=== PATIENT | female | born 1960 | race Caucasian/White ===

== ENCOUNTER → 2016-06-10 | Outpatient (CLI) | payer OTHER ==
--- NOTE | 2016-06-10 13:53 | REP ---
MR CERVICAL SPINE WITHOUT CONTRAST: HISTORY: Neck pain. There is no disc bulge or herniation. The spinal canal and neural foramina are patent. The spinal cord is normal in signal intensity. There is no intradural extramedullary lesion. Normal signal intensity is present in the cervical vertebral bodies. IMPRESSION: There is no disc bulge or herniation. Signed by Dwain Hinojosa MD 06/10/2016 02:16 P
== END ==
LOC: M RAD 11:01
PROVIDERS: ATTEND Physician Assistant Surgical
DX: M47.892 Other spondylosis, cervical region (principal)

== ENCOUNTER → 2016-06-27 | Outpatient (REF) | payer OTHER ==
[2016-06-27 16:57] LABS: BASO % 0.4 % (0.0-1.0); EOS # 0.2 K/mm3 (0.0-0.50); EOS % 5.1 % (0.0-3.0); LARGE UNSTAINED CELL # 0.1 K/mm3 (0.0-0.4); LARGE UNSTAINED CELL % 2.1 % (0.0-4.0); LYMPH # 0.8 K/mm3 (1.5-4.5); LYMPH % 20.8 % (24.0-44.0); MEAN CORPUSCULAR HEMOGLOBIN 28.8 pg (27.0-33.0); MEAN CORPUSCULAR HGB CONC 34.8 g/dl (32.0-36.5); MEAN CORPUSCULAR VOLUME 82.7 fl (80.0-96.0); MONO # 0.3 K/mm3 (0.0-0.8); MONO % 7.6 % (0.0-5.0); NEUTROPHILS # 2.2 K/mm3 (1.8-7.7); NEUTROPHILS % 64.1 % (36.0-66.0); PLATELET COUNT, AUTOMATED 221 k/mm3 (150-450); RED CELL DISTRIBUTION WIDTH 13.5 % (11.5-14.5); WHITE BLOOD COUNT 3.4 K/mm3 (4.0-10.0)
[2016-06-27 20:20] LABS: ERYTHROCYTE SEDIMENTATION RATE 7 mm/hr (0-30)
[2016-06-29 14:16] LABS: Lyme Disease IgG/IgM Antibodie <0.91 ISR (0.00-0.90); Lyme Disease IgM Ab Quantitati <0.80 index (0.00-0.79)
== END ==
LOC: M LABDRAW1 15:41
PROVIDERS: ATTEND Orthopaedic Surgery
DX: M16.12 Unilateral primary osteoarthritis, left hip (principal)

== ENCOUNTER 2016-06-28 08:58 | Emergency (ER) | payer OTHER ==
--- NOTE | 2016-06-28 09:28 | EDDOCDS ---
Nurse's Notes [facility] Name: Edwige Magallanes Age: 55 yrs Sex: Female : 1960 Arrival Date: 06/28/2016 Time: 08:58 Bed Triage 1 Private MD: Johana Alves V Diagnosis: Cough;Viral infection, unspecified Presentation: 06/28 09:02 Presenting complaint: Patient states: cough for 5 days. Yesterday had vomiting and last kr3 night fevers. Adult Sepsis Screening: The patient does not have new or worsening altered mentation. Patient's respiratory rate is less than 22. Systolic blood pressure is greater than 100. Patient has a qSOFA score of 0- Negative Sepsis Screen. Suicide/Homicide risk assessment- the patient denies having any suicidal and/or homicidal ideations and does not present with any other emotional, behavioral or mental health complaints. 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 Transition of care: patient was not received from another setting of care. 09:02 Acuity: ANTONINA Level 4 kr3 09:02 Method Of Arrival: Walkin/Carried/Asstd kr3 Triage Assessment: 09:05 General: Appears in no apparent distress, comfortable, Behavior is cooperative, Reports kr3 feeling ill for weakness. Pain: Location: abdomen Pain currently is 5 out of 10 on a pain scale. Quality of pain is described as pulled muscles. HIV screening NA for this visit Offered previously. Respiratory: Respiratory effort is even, unlabored. Respiratory: Reports cough that is since 5 days. GI: Reports yesterday nausea, vomiting and diarrhea. Derm: Skin is normal. 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 lisinopril-hydrochlorothiazide 10-12.5 mg oral tab 0.5 tab once daily (Last dose: 06/28/2016) 2. Tylenol 325 mg Oral tab 2 tabs every 4 hours (Last dose: 06/28/2016 08:45) 3. ibuprofen 200 mg Oral tab 1 tab as needed (Last dose: 06/27/2016) - PMHx: Asthma; Blood Disorder; Hepatitis; Hypertension; neck pain; - PSHx: Appendectomy; - Social history: Smoking status: Patient states was never smoker of tobacco. No barriers to communication noted, The patient speaks fluent Persian, Speaks appropriately for age. - Family history: Not pertinent. - : The pt / caregiver states he / she is not on anticoagulants. Home medication list is obtained from the patient. - Exposure Risk Screening:: None identified. Screenin:27 Screening information is obtained from the patient. Fall risk: No risks identified. srm Assistance ADL's: requires no assistance with activities of daily living. Abuse/DV Screen: The patient / caregiver reports he/she is: not in a situation that causes fear, pain or injury. Nutritional screening: No deficits noted. Advance Directives: There is no active DNR order. home support is adequate. Assessment: 09:27 General: Appears in no apparent distress, Behavior is appropriate for age, cooperative. srm Neurological: No deficits noted. Cardiovascular: No deficits noted. Respiratory: No deficits noted. GI: No deficits noted. Derm: No deficits noted. Vital Signs: 09:05 BP 137 / 78; Pulse 104; Resp 18; Temp 99.9(O); Pulse Ox 94% on R/A; Weight 84.37 kg kr3 (M); Height 5 ft. 1 in. (154.94 cm) (R); 09:05 Body Mass Index 35.14 (84.37 kg, 154.94 cm) kr3 Vitals: 09:05 Log In Time: June 28, 2016 at 08:56. kr3 ED Course: 08:59 Patient visited by Juan Molina Reg. lg 08:59 Patient moved to Waiting lg 09:00 Johana Alves is Private Physician. lg 09:02 Patient moved to Triage 1 kr3 09:02 Triage Initiated kr3 09:13 [facility] cc[facility] 09:13 Ted Jane MD is Attending Physician. cc10 09:13 Patient visited by Sergey Sousa PA-C. cc10 09:13 Patient visited by Sergey Sousa PA-C. cc10 09:20 Johana Alves is Referral Physician. cc10 09:27 The patient / caregiver is instructed regarding the plan of care and ED course. Patient srm has correct armband on for positive identification. 09:27 No IV's were initiated during this patient's visit. No procedures done that require srm assistance. Order Results: There are currently no results for this order. Outcome: 09:20 Discharge ordered by Provider. cc10 09:27 Discharge Assessment: Patient awake, alert and oriented x 3. No cognitive and/or srm functional deficits noted. Patient verbalized understanding of disposition instructions. patient administered narcotics - no. The following High Risk Discharge criteria are identified: None. Discharged to home ambulatory. Condition: stable. Discharge instructions given to patient, Instructed on discharge instructions, follow up and referral plans. medication usage, Demonstrated understanding of instructions, medications, Pt was receptive of discharge instructions/ teaching. Prescriptions given X 2. No special radiology studies were completed. Property sent home with patient. 09:28 Patient left the ED. srm Signatures: Macrina Dyer, RN RN Juan Harkins, Kristine Martins lg,RN RN kr3 Sergey Sousa, PA-C PA-C cc10 MTDTiffany
--- NOTE | 2016-06-28 09:28 | EDDOCDS ---
Physician Documentation [facility] Name: Edwige Magallanes Age: 55 yrs Sex: Female : 1960 Arrival Date: 06/28/2016 Time: 08:58 Bed Triage 1 Private MD: Johana Alves V Disposition: 06/28/16 09:20 Discharged to Home/Self Care. Impression: Viral infection, unspecified, Cough. - Condition is Stable. - Discharge Instructions: Influenza Adult. - Prescriptions for dextromethorphan- guaifenesin 30-200 mg/5 mL Oral liquid - take 10 milliliter by ORAL route every 6 hours as needed; 150 milliliter. Albuterol Sulfate 90 mcg/actuation Inhalation HFA Aerosol Inhaler - inhale 2 puff by INHALATION route every 4 hours As needed; 1 Inhaler. - Medication Reconciliation form. - Follow up: Johana Alves; When: 1 - 2 days; Reason: Wound/Symptom Recheck, Recheck today's complaints, Continuance of care. - Problem is an ongoing problem. - Symptoms are unchanged. Historical: - Allergies: SULFA (SULFONAMIDES); contrast dye?; - Home Meds: 1. lisinopril-hydrochlorothiazide 10-12.5 mg oral tab 0.5 tab once daily (Last dose: 06/28/2016) 2. Tylenol 325 mg Oral tab 2 tabs every 4 hours (Last dose: 06/28/2016 08:45) 3. ibuprofen 200 mg Oral tab 1 tab as needed (Last dose: 06/27/2016) - PMHx: Asthma; Blood Disorder; Hepatitis; Hypertension; neck pain; - PSHx: Appendectomy; - Social history: Smoking status: Patient states was never smoker of tobacco. No barriers to communication noted, The patient speaks fluent Armenian, Speaks appropriately for age. - Family history: Not pertinent. - : The pt / caregiver states he / she is not on anticoagulants. Home medication list is obtained from the patient. - Exposure Risk Screening:: None identified. 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 1 in. (154.94 cm) (R); 09:05 Body Mass Index 35.14 (84.37 kg, 154.94 cm) kr3 Signatures: Macrina Dyer, RN RN srm Kristine Johnson RN RN kr3 Sergey Sousa, SAURABHC PAMiguel Angel cc10 MTDD
--- NOTE | 2016-06-30 10:28 | EDDOCDS ---
Physician Documentation [facility] Name: Edwige Magallanes Age: 55 yrs Sex: Female : 1960 Arrival Date: 06/28/2016 Time: 08:58 Bed Triage 1 Private MD: Johana Alves V Disposition: 06/28/16 09:20 Discharged to Home/Self Care. Impression: Viral infection, unspecified, Cough. - Condition is Stable. - Discharge Instructions: Influenza Adult. - Prescriptions for dextromethorphan- guaifenesin 30-200 mg/5 mL Oral liquid - take 10 milliliter by ORAL route every 6 hours as needed; 150 milliliter. Albuterol Sulfate 90 mcg/actuation Inhalation HFA Aerosol Inhaler - inhale 2 puff by INHALATION route every 4 hours As needed; 1 Inhaler. - Medication Reconciliation form. - Follow up: Johana Alves; When: 1 - 2 days; Reason: Wound/Symptom Recheck, Recheck today's complaints, Continuance of care. - Problem is an ongoing problem. - Symptoms are unchanged. Historical: - Allergies: SULFA (SULFONAMIDES); contrast dye?; - Home Meds: 1. lisinopril-hydrochlorothiazide 10-12.5 mg oral tab 0.5 tab once daily (Last dose: 06/28/2016) 2. Tylenol 325 mg Oral tab 2 tabs every 4 hours (Last dose: 06/28/2016 08:45) 3. ibuprofen 200 mg Oral tab 1 tab as needed (Last dose: 06/27/2016) - PMHx: Asthma; Blood Disorder; Hepatitis; Hypertension; neck pain; - PSHx: Appendectomy; - Social history: Smoking status: Patient states was never smoker of tobacco. No barriers to communication noted, The patient speaks fluent Lao, Speaks appropriately for age. - Family history: Not pertinent. - : The pt / caregiver states he / she is not on anticoagulants. Home medication list is obtained from the patient. - Exposure Risk Screening:: None identified. 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 1 in. (154.94 cm) (R); 09:05 Body Mass Index 35.14 (84.37 kg, 154.94 cm) kr3 MDM: 10:02 [facility] Payment Agreement was scanned into [employer] and attached to record. lg 17:02 Financial registration complete. [email or web address] 06/29 13:09 T-Sheet-- Draft Copy was scanned into [employer] and attached to record. gb Signatures: Macrina Dyer, RN RN [facility] Chantal Lieberman, Reg Reg gb Juan Molina, Reg Reg lg Kristine Johnson RN RN kr3 Sergey Sousa, PA-C PA-C cc10 Rosy Jacobs, Reg Reg ks16 The chart was reviewed and I authenticate all verbal orders and agree with the evaluation and treatment provided.Attachments: 06/28 10:02 [facility] Payment Agreement lg 06/29 13:09 T-Sheet-- Draft Copy gb Chart Complete MTDD
--- NOTE | 2016-06-30 10:28 | EDDOCDS ---
Physician Documentation [facility] Name: Edwige Magallanes Age: 55 yrs Sex: Female : 1960 Arrival Date: 06/28/2016 Time: 08:58 Bed Triage 1 Private MD: Johana Alves V Disposition: 06/28/16 09:20 Discharged to Home/Self Care. Impression: Viral infection, unspecified, Cough. - Condition is Stable. - Discharge Instructions: Influenza Adult. - Prescriptions for dextromethorphan- guaifenesin 30-200 mg/5 mL Oral liquid - take 10 milliliter by ORAL route every 6 hours as needed; 150 milliliter. Albuterol Sulfate 90 mcg/actuation Inhalation HFA Aerosol Inhaler - inhale 2 puff by INHALATION route every 4 hours As needed; 1 Inhaler. - Medication Reconciliation form. - Follow up: Johana Alves; When: 1 - 2 days; Reason: Wound/Symptom Recheck, Recheck today's complaints, Continuance of care. - Problem is an ongoing problem. - Symptoms are unchanged. Historical: - Allergies: SULFA (SULFONAMIDES); contrast dye?; - Home Meds: 1. lisinopril-hydrochlorothiazide 10-12.5 mg oral tab 0.5 tab once daily (Last dose: 06/28/2016) 2. Tylenol 325 mg Oral tab 2 tabs every 4 hours (Last dose: 06/28/2016 08:45) 3. ibuprofen 200 mg Oral tab 1 tab as needed (Last dose: 06/27/2016) - PMHx: Asthma; Blood Disorder; Hepatitis; Hypertension; neck pain; - PSHx: Appendectomy; - Social history: Smoking status: Patient states was never smoker of tobacco. No barriers to communication noted, The patient speaks fluent Macedonian, Speaks appropriately for age. - Family history: Not pertinent. - : The pt / caregiver states he / she is not on anticoagulants. Home medication list is obtained from the patient. - Exposure Risk Screening:: None identified. 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 1 in. (154.94 cm) (R); 09:05 Body Mass Index 35.14 (84.37 kg, 154.94 cm) kr3 MDM: 10:02 [facility] Payment Agreement was scanned into [employer] and attached to record. lg 17:02 Financial registration complete. [email or web address] 06/29 13:09 T-Sheet-- Draft Copy was scanned into [employer] and attached to record. gb Signatures: Macrina Dyer, RN RN [facility] Chantal Lieberman, Reg Reg gb Juan Molina, Reg Reg lg Kristine Johnson RN RN kr3 Sergey Sousa, PA-C PA-C cc10 Rosy Jacobs, Reg Reg ks16 The chart was reviewed and I authenticate all verbal orders and agree with the evaluation and treatment provided.Attachments: 06/28 10:02 [facility] Payment Agreement lg 06/29 13:09 T-Sheet-- Draft Copy gb Chart Complete MTDD
--- NOTE | 2016-06-30 10:28 | EDDOCDS ---
Nurse's Notes [facility] Name: Edwige Magallanes Age: 55 yrs Sex: Female : 1960 Arrival Date: 06/28/2016 Time: 08:58 Bed Triage 1 Private MD: Johana Alves V Diagnosis: Cough;Viral infection, unspecified Presentation: 06/28 09:02 Presenting complaint: Patient states: cough for 5 days. Yesterday had vomiting and last kr3 night fevers. Adult Sepsis Screening: The patient does not have new or worsening altered mentation. Patient's respiratory rate is less than 22. Systolic blood pressure is greater than 100. Patient has a qSOFA score of 0- Negative Sepsis Screen. Suicide/Homicide risk assessment- the patient denies having any suicidal and/or homicidal ideations and does not present with any other emotional, behavioral or mental health complaints. 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 Transition of care: patient was not received from another setting of care. 09:02 Acuity: ANTONINA Level 4 kr3 09:02 Method Of Arrival: Walkin/Carried/Asstd kr3 Triage Assessment: 09:05 General: Appears in no apparent distress, comfortable, Behavior is cooperative, Reports kr3 feeling ill for weakness. Pain: Location: abdomen Pain currently is 5 out of 10 on a pain scale. Quality of pain is described as pulled muscles. HIV screening NA for this visit Offered previously. Respiratory: Respiratory effort is even, unlabored. Respiratory: Reports cough that is since 5 days. GI: Reports yesterday nausea, vomiting and diarrhea. Derm: Skin is normal. 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 lisinopril-hydrochlorothiazide 10-12.5 mg oral tab 0.5 tab once daily (Last dose: 06/28/2016) 2. Tylenol 325 mg Oral tab 2 tabs every 4 hours (Last dose: 06/28/2016 08:45) 3. ibuprofen 200 mg Oral tab 1 tab as needed (Last dose: 06/27/2016) - PMHx: Asthma; Blood Disorder; Hepatitis; Hypertension; neck pain; - PSHx: Appendectomy; - Social history: Smoking status: Patient states was never smoker of tobacco. No barriers to communication noted, The patient speaks fluent Divehi, Speaks appropriately for age. - Family history: Not pertinent. - : The pt / caregiver states he / she is not on anticoagulants. Home medication list is obtained from the patient. - Exposure Risk Screening:: None identified. Screenin:27 Screening information is obtained from the patient. Fall risk: No risks identified. srm Assistance ADL's: requires no assistance with activities of daily living. Abuse/DV Screen: The patient / caregiver reports he/she is: not in a situation that causes fear, pain or injury. Nutritional screening: No deficits noted. Advance Directives: There is no active DNR order. home support is adequate. Assessment: 09:27 General: Appears in no apparent distress, Behavior is appropriate for age, cooperative. srm Neurological: No deficits noted. Cardiovascular: No deficits noted. Respiratory: No deficits noted. GI: No deficits noted. Derm: No deficits noted. Vital Signs: 09:05 BP 137 / 78; Pulse 104; Resp 18; Temp 99.9(O); Pulse Ox 94% on R/A; Weight 84.37 kg kr3 (M); Height 5 ft. 1 in. (154.94 cm) (R); 09:05 Body Mass Index 35.14 (84.37 kg, 154.94 cm) kr3 Vitals: 09:05 Log In Time: June 28, 2016 at 08:56. kr3 ED Course: 08:59 Patient visited by Juan Molina Reg. lg 08:59 Patient moved to Waiting lg 09:00 Johana Alves is Private Physician. lg 09:02 Patient moved to Triage 1 kr3 09:02 Triage Initiated kr3 09:13 Sergey Sousa PA-C is PSYCHIATRICP. cc10 09:13 Ted Jane MD is Attending Physician. cc10 09:13 Patient visited by Sergey Sousa PA-C. cc10 09:13 Patient visited by Sergey Sousa PA-C. cc10 09:20 Johana Alves is Referral Physician. cc10 09:27 The patient / caregiver is instructed regarding the plan of care and ED course. Patient srm has correct armband on for positive identification. 09:27 No IV's were initiated during this patient's visit. No procedures done that require srm assistance. 10:02 [facility] Payment Agreement was scanned into [employer] and attached to record. 06/29 13:09 T-Sheet-- Draft Copy was scanned into [employer] and attached to record. gb Order Results: There are currently no results for this order. Outcome: 06/28 09:20 Discharge ordered by Provider. cc10 09:27 Discharge Assessment: Patient awake, alert and oriented x 3. No cognitive and/or srm functional deficits noted. Patient verbalized understanding of disposition instructions. patient administered narcotics - no. The following High Risk Discharge criteria are identified: None. Discharged to home ambulatory. Condition: stable. Discharge instructions given to patient, Instructed on discharge instructions, follow up and referral plans. medication usage, Demonstrated understanding of instructions, medications, Pt was receptive of discharge instructions/ teaching. Prescriptions given X 2. No special radiology studies were completed. Property sent home with patient. 09:28 Patient left the ED. srm Signatures: Macrina Dyer, RN RN srm Chantal Lieberman, Reg Reg gb Juan Molina, Reg Reg lg Kristine Johnson,WILDA RN didier3 Sergey Sousa, PA-C PA-C cc10 Chart Complete MTDD
== END 2016-06-28 09:28 | disposition home or self-care (01) ==
LOC: M ED 08:58
DX: J06.9 Acute upper respiratory infection, unspecified (principal); J45.909 Unspecified asthma, uncomplicated; I10 Essential (primary) hypertension; K75.9 Inflammatory liver disease, unspecified; M54.2 Cervicalgia; E66.9 Obesity, unspecified; Z79.899 Other long term (current) drug therapy; Z88.2 Allergy status to sulfonamides

== ENCOUNTER → 2016-07-26 | Outpatient (CLI) | payer OTHER ==
[~2016-07-26] MED LIST: CONRAY-43 43% 50ML VIAL (Q9960) As Ordered ONE
== END ==
LOC: M RADPRO 07:24
PROVIDERS: ATTEND Orthopaedic Surgery
DX: M16.12 Unilateral primary osteoarthritis, left hip (principal); Z53.20 Procedure and treatment not carried out because of patient's decision for unspecified reasons

== ENCOUNTER → 2016-08-19 | Outpatient (CLI) | payer OTHER ==
--- NOTE | 2016-08-19 10:37 | REP ---
Injection procedure for MR arthrography left hip: History: Unilateral primary osteoarthritis of the left hip. Procedure: The patient was interviewed and informed consent was obtained. The patient was placed supine on the fluoroscopy table. The left hip groin pulses were palpated and the overlying skin was marked. After patient safety time-out was articulated and agreed to, the anterior aspect of the left hip was prepped and draped in the usual fashion. Utilizing 1% lidocaine for local anesthetic and fluoroscopic guidance, a 22 gauge 3 1/2-inch needle was advanced into the left hip articulation. Interarticular needle position was confirmed by the injection of approximate 1 mL of Conray 43. This is followed by the injection of 11 mL of a 20 mL sterile saline solution to which a 0.15 mL of gadolinium was added. The patient tolerated the injection procedure well. Fluoroscopy time was 43 seconds. Two last image hold spot films are saved. Impression: Injection procedure for MR arthrography left hip. Signed by Ming Lopez MD 08/19/2016 06:35 P
--- NOTE | 2016-08-19 12:39 | REP ---
MR ARTHROGRAM LEFT HIP: HISTORY: Unilateral primary osteoarthritis left hip. Left hip pain. COMPARISON STUDIES: Comparison radiograph is from December 02, 2015. TECHNIQUE: Precontrast imaging includes coronal T1 and T2-weighted scans of both hips. Postcontrast small field of view high resolution axial, coronal and sagittal images are acquired in T1 and T2-weighted scans with fat saturation. MR ARTHROGRAPHIC FINDINGS: Pre-injection MR imaging shows a small amount of right hip joint effusion. There is T2 hyperintense fluid collection adjacent to the greater trochanter of the left hip on pre-injection imaging. Similar less pronounced fluid signal intensity is seen adjacent to the right greater trochanter. This is compatible with peritrochanteric bursitis and/or tendonitis. There is no evidence of avascular necrosis. No uterine or pelvic mass adenopathy or cyst is seen. Post injection imaging shows some injection artifact. No labral tear is seen. No loose body is appreciated. There is mild femoral acetabular spurring consistent with the osteoarthritis visible radiographically. Some joint space narrowing is seen inferomedially on coronal images. Head and neck junction morphology is otherwise normal. The ligamentum teres is intact. IMPRESSION: Osteoarthritic spurring of the femoral head and some inferomedial joint space narrowing consistent with osteoarthritis. There is a peritrochanteric bursal fluid collection at the greater trochanter consistent with bursitis and/or tendonitis. A small right hip joint effusion is seen. Signed by Ming Lopez MD 08/19/2016 06:35 P
== END ==
LOC: M RADPRO 07:21
PROVIDERS: ATTEND Orthopaedic Surgery
DX: M16.12 Unilateral primary osteoarthritis, left hip (principal); M25.452 Effusion, left hip
CPT/HCPCS: 27093; 73723; 77002; A9576; Q9960

== ENCOUNTER → 2016-10-12 | Outpatient (RCR) | payer OTHER | END | disposition home or self-care (01) | LOC: M PT 13:02 | PROVIDERS: ATTEND Physician Assistant Surgical | DX: Z51.89 Encounter for other specified aftercare (principal); M16.12 Unilateral primary osteoarthritis, left hip ==

== ENCOUNTER → 2016-10-12 | Outpatient (CLI) | payer OTHER ==
[2016-10-12 16:28] LABS: BASO % 0.9 % (0.0-1.0); EOS # 0.1 K/mm3 (0.0-0.50); EOS % 1.7 % (0.0-3.0); LARGE UNSTAINED CELL # 0.1 K/mm3 (0.0-0.4); LARGE UNSTAINED CELL % 2.5 % (0.0-4.0); LYMPH # 0.8 K/mm3 (1.5-4.5); LYMPH % 24.2 % (24.0-44.0); MEAN CORPUSCULAR HGB CONC 34.6 g/dl (32.0-36.5); MEAN CORPUSCULAR VOLUME 83.8 fl (80.0-96.0); MONO # 0.2 K/mm3 (0.0-0.8); MONO % 6.9 % (0.0-5.0); NEUTROPHILS # 2.2 K/mm3 (1.8-7.7); NEUTROPHILS % 63.8 % (36.0-66.0); PLATELET COUNT, AUTOMATED 245 k/mm3 (150-450); RED CELL DISTRIBUTION WIDTH 13.4 % (11.5-14.5); WHITE BLOOD COUNT 3.5 K/mm3 (4.0-10.0)
[2016-10-12 17:01] LABS: VITAMIN B12 LEVEL 604 PG/ML (247-911)
[2016-10-12 17:16] LABS: ALBUMIN/GLOBULIN RATIO 1.38 (1.00-1.93); ALKALINE PHOSPHATASE 97 U/L (45-117); ALT/SGPT 33 U/L (12-78); ANION GAP 9 MEQ/L (8-16); AST/SGOT 22 U/L (15-37); BILIRUBIN,TOTAL 0.6 MG/DL (0.2-1.0); BLOOD UREA NITROGEN 16 MG/DL (7-18); CALCIUM LEVEL 8.8 MG/DL (8.5-10.1); CARBON DIOXIDE LEVEL 26 MEQ/L (21-32); CHLORIDE LEVEL 107 MEQ/L (98-107); CREATININE FOR GFR 0.68 MG/DL (0.55-1.02); GLOMERULAR FILTRATION RATE > 60.0 (>51); GLUCOSE, FASTING 87 MG/DL (70-105); POTASSIUM SERUM 3.9 MEQ/L (3.5-5.1); SODIUM LEVEL 142 MEQ/L (136-145); TOTAL PROTEIN 6.9 GM/DL (6.4-8.2); URIC ACID 4.4 MG/DL (2.6-6.0)
[2016-10-12 20:30] LABS: ERYTHROCYTE SEDIMENTATION RATE 6 mm/hr (0-30)
--- NOTE | 2016-10-12 22:20 | REP ---
Clinical: Pain. Technique: AP, frontal angled, and bilateral oblique views of the sacroiliac joints. Findings: The bilateral sacroiliac joints are essentially symmetric and normal for age. No periarticular sclerosis or fusion is appreciated. No acute fracture dislocation. Impression: Symmetric age-related appearance of the sacroiliac joints. Signed by Humberto Velasquez MD 10/12/2016 10:13 P
--- NOTE | 2016-10-12 22:21 | REP ---
Clinical: Pain. Technique: AP, lateral, bilateral oblique views of the left hand. Findings: Mild to early moderate arthritic degenerative changes are appreciated. Findings predominate involving the interphalangeal joints and most notably the fifth proximal interphalangeal joint. Findings include joint space narrowing with subchondral sclerosis and subtle marginal spurring. No acute fracture dislocation. Impression: Mild to early moderate arthritic degenerative changes. Signed by Humberto Velasquez MD 10/12/2016 10:14 P
--- NOTE | 2016-10-12 22:23 | REP ---
Clinical: Pain. Technique: AP, lateral, bilateral oblique, sunrise views and weightbearing views of the right and left knee. Findings: The osseous structures and joint spaces are essentially symmetric and normal for age. Very subtle increase sclerosis to the tibial plateau and very minimal bilateral medial compartment and patellofemoral joint space narrowing may be suggested. No acute fracture dislocation. No effusion. Impression: Very minimal symmetric age-related degenerative changes. Signed by Humberto Velasquez MD 10/12/2016 10:15 P
--- NOTE | 2016-10-12 22:25 | REP ---
Clinical: Chest pain . Comparison: None . Technique: PA and lateral. Findings: The mediastinum and cardiac silhouette are normal. The lung lópez are clear and without acute consolidation, effusion, or pneumothorax. The skeletal structures are intact and normal. Impression: 1. No acute cardiopulmonary process. Signed by Humberto Velasquez MD 10/12/2016 10:17 P
--- NOTE | 2016-10-12 22:25 | REP ---
Clinical: Back pain. Technique: AP, lateral, bilateral oblique, and coned-down views of the lumbosacral spine. Findings: Moderate multilevel degenerative changes are appreciated. Findings include anterior spurring along with minimal endplate sclerosis and disc space narrowing. Findings are most pronounced at the L5-S1 level which includes hypertrophic facet change. Alignment and lordosis maintained. No acute fracture / compression injury or subluxation. Impression: Moderate multilevel degenerative changes predominantly involving the L5-S1 level. Signed by Humberto Velasquez MD 10/12/2016 10:17 P
--- NOTE | 2016-10-12 22:27 | REP ---
Clinical: Pain. Technique: AP, lateral, bilateral oblique views left foot . Findings: There is no evidence for acute fracture or dislocation. Degenerative changes involving the first metatarsophalangeal joint includes subchondral sclerosis, subtle marginal spurring and joint space narrowing. Mild age-related changes are also noted involving the remainder of the metatarsophalangeal and interphalangeal joints. Lateral view demonstrates moderate calcaneal heal spur. Surrounding soft tissues are unremarkable. No subcutaneous emphysema or radiodense foreign body. Impression: Mild age-related degenerative changes primarily involving the first toe. Signed by Humberto Velasquez MD 10/12/2016 10:19 P
[2016-10-15 00:19] LABS: Lyme Disease IgG/IgM Antibodie <0.91 ISR (0.00-0.90); Lyme Disease IgM Ab Quantitati <0.80 index (0.00-0.79)
== END ==
LOC: M LAB 14:49
PROVIDERS: ATTEND Internal Medicine Rheumatology
DX: M35.9 Systemic involvement of connective tissue, unspecified (principal); R74.0 Nonspecific elevation of levels of transaminase and lactic acid dehydrogenase [LDH]; D51.0 Vitamin B12 deficiency anemia due to intrinsic factor deficiency; Z79.899 Other long term (current) drug therapy; R07.9 Chest pain, unspecified; M51.36 Other intervertebral disc degeneration, lumbar region; M79.672 Pain in left foot; M79.642 Pain in left hand; M25.562 Pain in left knee; M25.561 Pain in right knee

== ENCOUNTER 2016-11-09 12:55 | Outpatient (RCR) | payer OTHER | END 2016-11-11 | disposition home or self-care (01) | LOC: M PT 12:55 | PROVIDERS: ATTEND Physician Assistant Surgical | DX: Z51.89 Encounter for other specified aftercare (principal); M47.892 Other spondylosis, cervical region; M16.12 Unilateral primary osteoarthritis, left hip; M70.62 Trochanteric bursitis, left hip ==

== ENCOUNTER → 2016-12-29 | Outpatient (CLI) | payer OTHER ==
[2016-12-29 12:46] LABS: BASO % 0.7 % (0.0-1.0); EOS # 0.1 K/mm3 (0.0-0.50); EOS % 2.3 % (0.0-3.0); LARGE UNSTAINED CELL # 0.1 K/mm3 (0.0-0.4); LARGE UNSTAINED CELL % 2.2 % (0.0-4.0); LYMPH # 0.8 K/mm3 (1.5-4.5); LYMPH % 23.1 % (24.0-44.0); MEAN CORPUSCULAR HEMOGLOBIN 28.5 pg (27.0-33.0); MEAN CORPUSCULAR HGB CONC 34.8 g/dl (32.0-36.5); MEAN CORPUSCULAR VOLUME 81.8 fl (80.0-96.0); MONO # 0.2 K/mm3 (0.0-0.8); MONO % 5.9 % (0.0-5.0); NEUTROPHILS # 2.2 K/mm3 (1.8-7.7); NEUTROPHILS % 65.8 % (36.0-66.0); PLATELET COUNT, AUTOMATED 266 k/mm3 (150-450); WHITE BLOOD COUNT 3.4 K/mm3 (4.0-10.0)
[2016-12-29 13:09] LABS: ANION GAP 8 MEQ/L (8-16); BLOOD UREA NITROGEN 14 MG/DL (7-18); CALCIUM LEVEL 9.1 MG/DL (8.5-10.1); CARBON DIOXIDE LEVEL 25 MEQ/L (21-32); CHLORIDE LEVEL 109 MEQ/L (98-107); CREATININE FOR GFR 0.65 MG/DL (0.55-1.02); GLOMERULAR FILTRATION RATE > 60.0 (>51); GLUCOSE, FASTING 99 MG/DL (70-105); POTASSIUM SERUM 3.9 MEQ/L (3.5-5.1); SODIUM LEVEL 142 MEQ/L (136-145)
== END ==
LOC: M LAB 12:03
PROVIDERS: ATTEND Family Medicine
DX: D72.810 Lymphocytopenia (principal)

== ENCOUNTER → 2017-01-12 | Outpatient (CLI) | payer OTHER ==
--- NOTE | 2017-01-18 14:23 | REPMRS ---
Patient History The patient states she has not had a clinical breast exam in over a year. Patient is postmenopausal. Family history of colorectal cancer in father at age 60, colorectal cancer in paternal grandfather at age 55, breast cancer in sister at age 35, endometrial cancer in mother at age 60, ovarian cancer in maternal aunt at age 50, and ovarian cancer in paternal aunt at age 50. Digital Mammo Screening Bilat: January 12, 2017 - Exam #: [id number] Bilateral CC and MLO view(s) were taken. Technologist: Tanya Banuelos, Technologist Prior study comparison: November 27, 2013, digital bilateral screening mammo, performed at [facility]. December 30, 2009, digital bilateral screening mammo, performed at [facility]. FINDINGS: There are scattered fibroglandular densities. There has been no change in the appearance of the mammogram from the prior studies. There is a mild amount of scattered fibroglandular density which is fairly symmetric. There is no interval development of dominant mass, architectural distortion, or clustered microcalcification suggestive of malignancy. ASSESSMENT: BI-RADS/ACR category 1 mammogram. Negative. Recommendation Routine screening mammogram in 1 year (for women over age 40). This mammogram was interpreted with the aid of an FDA-approved computer-aided dectection system. Electronically Signed By: Silvestre Lopez MD 01/18/17 1384
== END ==
LOC: M RAD 11:01
PROVIDERS: ATTEND Family Medicine
DX: Z12.31 Encounter for screening mammogram for malignant neoplasm of breast (principal); Z80.3 Family history of malignant neoplasm of breast; Z80.0 Family history of malignant neoplasm of digestive organs; Z80.49 Family history of malignant neoplasm of other genital organs; Z80.41 Family history of malignant neoplasm of ovary; Z78.0 Asymptomatic menopausal state

== ENCOUNTER 2017-04-17 13:51 | Outpatient (RCR) | payer OTHER | END 2017-05-14 | LOC: M PT 13:51 | DX: Z51.89 Encounter for other specified aftercare (principal); M54.5 Low back pain; M16.12 Unilateral primary osteoarthritis, left hip | CPT/HCPCS: 97010 ==

== ENCOUNTER → 2017-04-21 | Outpatient (CLI) | payer OTHER ==
--- NOTE | 2017-04-21 14:40 | REP ---
MRI LUMBAR SPINE WITHOUT CONTRAST: HISTORY: Back pain. A rudimentary disc is present at the S1-2 level. Decreased signal intensity on T2-weighted images is present in the L3-4 through L5-S1 intervertebral discs. The discs are decreased in height. These findings are consistent with disc degeneration. There is no disc bulge or herniation at the L1-2 and L2-3 levels. The nerves exit the neural foramina without compression. A diffuse disc bulge is present at the L3-4 level. There is minimal compression of the thecal sac. There is hypertrophy of the ligamentum flava and posterior articulating facets. The L3 nerves exit the neural foramina without compression. A diffuse disc bulge is present at the L4-5 level. There is minimal compression of the thecal sac. There is hypertrophy of the ligamenta flava and posterior articulating facets. The L4 nerves exit the neural foramina without compression. A diffuse disc bulge and small disc extrusion central and eccentric to the right are present at the L5-S1 level. There is inferior migration of disc material. There is minimal compression of the thecal sac and S1 nerves as they exit the thecal sac. There is hypertrophy of the posterior articulating facets. The L5 nerves exit the neural foramina without compression. The conus medullaris is normal in appearance terminating at the level of the T12-L1 intervertebral disc. Normal signal intensity is present in the lumbar vertebral bodies. IMPRESSION: 1. Diffuse disc bulges at the L3-4 and L4-5 levels with minimal thecal sac compression. 2. Diffuse disc bulge and small disc extrusion at the L5-S1 level with minimal compression of the thecal sac and S1 nerves as the exit the thecal sac. Signed by Dwain Hinojosa MD 04/21/2017 02:46 P
== END ==
LOC: M PLARAD 12:09
PROVIDERS: ATTEND Orthopaedic Surgery
DX: M51.26 Other intervertebral disc displacement, lumbar region (principal)

== ENCOUNTER 2017-05-18 12:13 | Outpatient (RCR) | payer OTHER | END 2017-06-14 | LOC: M PT 12:13 | DX: Z51.89 Encounter for other specified aftercare (principal); M54.9 Dorsalgia, unspecified; M16.12 Unilateral primary osteoarthritis, left hip | CPT/HCPCS: 97010 ==

== ENCOUNTER → 2017-08-18 | Outpatient (CLI) | payer OTHER | LOC: M PAIN 11:30 | DX: M12.9 Arthropathy, unspecified (principal); M25.551 Pain in right hip; M25.552 Pain in left hip; M51.26 Other intervertebral disc displacement, lumbar region; G89.29 Other chronic pain; I10 Essential (primary) hypertension; F32.9 Major depressive disorder, single episode, unspecified; J45.909 Unspecified asthma, uncomplicated; Z79.899 Other long term (current) drug therapy; Z88.2 Allergy status to sulfonamides; Z91.041 Radiographic dye allergy status | CPT/HCPCS: G0463 ==

== ENCOUNTER → 2017-08-31 | Outpatient (REF) | payer OTHER, MEDICAID ==
[2017-08-31 13:22] LABS: ALBUMIN/GLOBULIN RATIO 1.29 (1.00-1.93); ALKALINE PHOSPHATASE 104 U/L (45-117); ALT/SGPT 30 U/L (12-78); ANION GAP 8 MEQ/L (8-16); AST/SGOT 21 U/L (7-37); BILIRUBIN,TOTAL 0.5 MG/DL (0.2-1.0); BLOOD UREA NITROGEN 13 MG/DL (7-18); CALCIUM LEVEL 8.7 MG/DL (8.5-10.1); CARBON DIOXIDE LEVEL 25 MEQ/L (21-32); CHLORIDE LEVEL 110 MEQ/L (98-107); CHOLESTEROL LEVEL 205 MG/DL (<200); CREATININE FOR GFR 0.71 MG/DL (0.55-1.30); GLOMERULAR FILTRATION RATE > 60.0 (>51); GLUCOSE, FASTING 91 MG/DL (70-100); HDL CHOLESTEROL 61 MG/DL (>40); NON-HDL-C 144 MG/DL; SODIUM LEVEL 143 MEQ/L (136-145); TOTAL PROTEIN 7.1 GM/DL (6.4-8.2); TRIGLYCERIDES LEVEL 110 MG/DL (<150)
== END ==
LOC: M LAB REF 12:13
DX: I10 Essential (primary) hypertension (principal)

== ENCOUNTER → 2017-09-14 | Outpatient (REF) | payer OTHER, MEDICAID ==
[2017-09-14 19:25] LABS: BASO % 0.6 % (0.0-1.0); EOS # 0.1 10^3/uL (0.0-0.50); EOS % 2.4 % (0.0-3.0); HEMATOCRIT 41.3 % (36.0-47.0); HEMOGLOBIN 14.1 g/dl (12.0-15.5); IMMATURE GRANULOCYTE % 0.3 % (0-3.0); LYMPH % 28.3 % (24.0-44.0); MEAN CORPUSCULAR HEMOGLOBIN 27.8 pg (27.0-33.0); MEAN CORPUSCULAR HGB CONC 34.1 g/dl (32.0-36.5); MEAN CORPUSCULAR VOLUME 81.5 fl (80.0-96.0); MONO # 0.3 10^3/uL (0.0-0.8); MONO % 9.8 % (0.0-5.0); NEUTROPHILS % 58.6 % (36.0-66.0); PLATELET COUNT, AUTOMATED 257 10^3/uL (150-450); RED BLOOD COUNT 5.07 10^6/uL (4.00-5.40); RED CELL DISTRIBUTION WIDTH 13.2 % (11.5-14.5); WHITE BLOOD COUNT 3.4 10^3/uL (4.0-10.0)
[2017-09-14 19:33] LABS: IRON (FE) 57 UG/DL (50-170)
[2017-09-15 08:28] LABS: VITAMIN B12 LEVEL 586 PG/ML (247-911)
== END ==
LOC: M LAB REF 18:49
DX: D51.0 Vitamin B12 deficiency anemia due to intrinsic factor deficiency (principal)
CPT/HCPCS: 83540

== ENCOUNTER 2017-09-26 14:47 | Outpatient (RCR) | payer OTHER | END 2017-10-12 | LOC: M PT 14:47 | DX: Z51.89 Encounter for other specified aftercare (principal); M25.551 Pain in right hip ==

== ENCOUNTER 2017-10-17 13:53 | Outpatient (RCR) | payer OTHER | END 2017-11-11 | LOC: M PT 10-19 08:49 | DX: Z51.89 Encounter for other specified aftercare (principal); M25.551 Pain in right hip | CPT/HCPCS: 97010 ==

== ENCOUNTER → 2017-11-02 | Outpatient (REF) | payer OTHER ==
[2017-11-08 14:47] LABS: HPV LOW VOL RFLX Negative (Negative)
== END ==
LOC: M LAB REF 13:41
DX: Z12.4 Encounter for screening for malignant neoplasm of cervix (principal)

== ENCOUNTER → 2017-11-10 | Outpatient (CLI) | payer OTHER | LOC: M PAIN 11:15 | DX: M25.551 Pain in right hip (principal); M25.552 Pain in left hip; M51.26 Other intervertebral disc displacement, lumbar region; G89.29 Other chronic pain; I10 Essential (primary) hypertension; F32.9 Major depressive disorder, single episode, unspecified; J45.909 Unspecified asthma, uncomplicated; M19.90 Unspecified osteoarthritis, unspecified site; Z79.899 Other long term (current) drug therapy; Z88.2 Allergy status to sulfonamides; Z91.041 Radiographic dye allergy status | CPT/HCPCS: G0463 ==

== ENCOUNTER → 2017-12-07 | Outpatient (CLI) | payer OTHER ==
[2017-12-07 13:28] LABS: NT-PRO BNP 125 PG/ML (<125)
== END ==
LOC: M LAB 11:58
DX: R06.00 Dyspnea, unspecified (principal)
CPT/HCPCS: 36415

== ENCOUNTER → 2018-01-17 | Outpatient (CLI) | payer OTHER | LOC: M PAIN 10:00 | DX: M25.551 Pain in right hip (principal); M25.552 Pain in left hip; M51.26 Other intervertebral disc displacement, lumbar region; G89.29 Other chronic pain; I10 Essential (primary) hypertension; F32.9 Major depressive disorder, single episode, unspecified; J45.909 Unspecified asthma, uncomplicated; M19.90 Unspecified osteoarthritis, unspecified site; E66.01 Morbid (severe) obesity due to excess calories; Z68.43 Body mass index [BMI] 50.0-59.9, adult; Z79.899 Other long term (current) drug therapy; Z88.2 Allergy status to sulfonamides; Z91.041 Radiographic dye allergy status | CPT/HCPCS: G0463 ==

== ENCOUNTER → 2018-03-14 | Outpatient (CLI) | payer OTHER | LOC: M RAD 09:52 | DX: N64.4 Mastodynia (principal) ==

== ENCOUNTER 2018-03-26 16:08 | Emergency (ER) | payer OTHER | END 2018-03-26 18:17 | disposition home or self-care (01) | LOC: M ED 16:08 | DX: H61.21 Impacted cerumen, right ear (principal); H92.01 Otalgia, right ear; I10 Essential (primary) hypertension; Z72.0 Tobacco use; Z79.899 Other long term (current) drug therapy; Z88.2 Allergy status to sulfonamides | CPT/HCPCS: 99283 ==

== ENCOUNTER → 2018-03-30 | Outpatient (CLI) | payer OTHER | LOC: M RAD 12:47 | DX: Z12.39 Encounter for other screening for malignant neoplasm of breast (principal); N64.4 Mastodynia | CPT/HCPCS: 77066 ==

== ENCOUNTER → 2018-06-20 | Outpatient (CLI) | payer OTHER ==
[~2018-06-20] MED LIST changes: +CETI10TA; -CONRAY-43 43% 50ML VIAL (Q9960) As Ordered ONE; +DEBR6.5S4 OTIC; +IBUP200T45 PO; +LISI10TA2
[2018-06-20 16:16] LABS: BASO % 0.8 % (0.0-1.0); EOS # 0.1 10^3/uL (0.0-0.50); EOS % 2.5 % (0.0-3.0); HEMATOCRIT 41.3 % (36.0-47.0); HEMOGLOBIN 14.2 g/dl (12.0-15.5); LYMPH % 27.2 % (24.0-44.0); MEAN CORPUSCULAR HEMOGLOBIN 28.4 pg (27.0-33.0); MEAN CORPUSCULAR HGB CONC 34.4 g/dl (32.0-36.5); MEAN CORPUSCULAR VOLUME 82.6 fl (80.0-96.0); MONO # 0.3 10^3/uL (0.0-0.8); MONO % 8.8 % (0.0-5.0); NEUTROPHILS # 2.1 10^3/uL (1.8-7.7); NEUTROPHILS % 60.4 % (36.0-66.0); PLATELET COUNT, AUTOMATED 265 10^3/uL (150-450); WHITE BLOOD COUNT 3.5 10^3/uL (4.0-10.0)
[2018-06-20 16:34] LABS: ALBUMIN 3.7 GM/DL (3.2-5.2); ALT/SGPT 27 U/L (12-78); BILIRUBIN,TOTAL 0.4 MG/DL (0.2-1.0); BLOOD UREA NITROGEN 15 MG/DL (7-18); C REACTIVE PROTEIN QUANTITATIV 1.56 MG/DL (0.00-0.30); CALCIUM LEVEL 8.7 MG/DL (8.5-10.1); CARBON DIOXIDE LEVEL 24 MEQ/L (21-32); CHLORIDE LEVEL 108 MEQ/L (98-107); COMPLEMENT C3 144 MG/DL (90-180); COMPLEMENT C4 40 MG/DL (10-40); CPK CREATINE PHOSPHOKINASE 124 U/L (26-192); CREATININE FOR GFR 0.72 MG/DL (0.55-1.30); FERRITIN 50 NG/ML (8-252); GLOMERULAR FILTRATION RATE > 60.0 (>51); GLUCOSE, FASTING 120 MG/DL (70-100); POTASSIUM SERUM 3.7 MEQ/L (3.5-5.1); RHEUMATOID FACTOR QUANT < 10.0 IU/ML (<15.0); SODIUM LEVEL 140 MEQ/L (136-145); TOTAL PROTEIN 6.5 GM/DL (6.4-8.2)
[2018-06-20 21:58] LABS: ERYTHROCYTE SEDIMENTATION RATE 6 mm/hr (0-30)
--- NOTE | 2018-06-21 04:08 | REP ---
Clinical: Bilateral hand pain. Technique: AP, lateral, bilateral oblique views of the right and left hand. Findings: Mild osteoarthritic degenerative changes include subchondral sclerosis with joint space narrowing involving the interphalangeal joints bilaterally (left greater than right). Scattered associated marginal osteophytes identified at the left first interphalangeal joint, second through fifth distal interphalangeal joints, and fifth proximal interphalangeal joint. Impression: Mild osteoarthritic degenerative changes (left greater than right). Electronically Signed by Humberto Velasquez MD 06/21/2018 04:00 A
[2018-06-22 14:32] LABS: ANTINUCLEAR ANTIBODIES DIRECT Negative (Negative)
[2018-06-23 00:07] LABS: CYCLIC CITRULLINATED PEPTIDE 8 units (0-19); TISSUE TRANSGLUTAMINASE IgA <2 U/mL (0-3)
== END ==
LOC: M LAB 14:44
PROVIDERS: ATTEND Internal Medicine Rheumatology
DX: M19.041 Primary osteoarthritis, right hand (principal); M19.042 Primary osteoarthritis, left hand

== ENCOUNTER → 2018-06-20 | Outpatient (REF) | payer OTHER ==
[2018-06-23 15:39] LABS: ANTINUCLEAR ANTIBODIES DIRECT Negative (Negative)
[2018-06-27 00:11] LABS: ANTI CENTROMERE ANTIBODY <0.2 AI (0.0-0.9); ANTI JO-1 ANTIBODIES <0.2 AI (0.0-0.9); ANTI SCLERODERMA ANTIBODIES <0.2 AI (0.0-0.9); ANTI-HISTONE ANTIBODIES 0.4 Units (0.0-0.9)
== END ==
LOC: M LAB REF 06-20 09:26
PROVIDERS: ATTEND Internal Medicine Rheumatology
DX: M25.50 Pain in unspecified joint (principal)

== ENCOUNTER → 2018-08-22 | Outpatient (REF) | payer OTHER ==
[2018-08-22 19:50] LABS: BASO % 0.6 % (0.0-1.0); EOS # 0.1 10^3/uL (0.0-0.50); EOS % 2.7 % (0.0-3.0); HEMATOCRIT 41.5 % (36.0-47.0); HEMOGLOBIN 14.2 g/dl (12.0-15.5); LYMPH % 30.6 % (24.0-44.0); MEAN CORPUSCULAR HEMOGLOBIN 28.1 pg (27.0-33.0); MEAN CORPUSCULAR HGB CONC 34.2 g/dl (32.0-36.5); MEAN CORPUSCULAR VOLUME 82.2 fl (80.0-96.0); MONO # 0.3 10^3/uL (0.0-0.8); MONO % 8.1 % (0.0-5.0); NEUTROPHILS # 1.9 10^3/uL (1.8-7.7); NEUTROPHILS % 57.7 % (36.0-66.0); PLATELET COUNT, AUTOMATED 260 10^3/uL (150-450); RED BLOOD COUNT 5.05 10^6/uL (4.00-5.40); WHITE BLOOD COUNT 3.3 10^3/uL (4.0-10.0)
[2018-08-22 20:09] LABS: ALBUMIN 3.9 GM/DL (3.2-5.2); ALT/SGPT 36 U/L (12-78); BILIRUBIN,TOTAL 0.5 MG/DL (0.2-1.0); BLOOD UREA NITROGEN 16 MG/DL (7-18); CALCIUM LEVEL 8.9 MG/DL (8.5-10.1); CARBON DIOXIDE LEVEL 26 MEQ/L (21-32); CHLORIDE LEVEL 108 MEQ/L (98-107); CREATININE FOR GFR 0.69 MG/DL (0.55-1.30); GLOMERULAR FILTRATION RATE > 60.0 (>51); GLUCOSE, FASTING 103 MG/DL (70-100); POTASSIUM SERUM 3.9 MEQ/L (3.5-5.1); SODIUM LEVEL 142 MEQ/L (136-145); TOTAL PROTEIN 6.7 GM/DL (6.4-8.2)
== END ==
LOC: M LAB REF 19:21
PROVIDERS: ATTEND Family Medicine Addiction Medicine
DX: D51.0 Vitamin B12 deficiency anemia due to intrinsic factor deficiency (principal)

== ENCOUNTER 2019-03-15 10:50 | Day surgery (SDC) | payer MEDICARE, MEDICAID ==
[~2019-03-15] VITALS: Ht 154.9 cm; Wt 96.2 kg
[~2019-03-15 10:50] MED LIST changes: +LISI10TA15; -LISI10TA2; +NS 1,000 ML IV ONE
--- NOTE | 2019-03-15 14:39 | ROOR ---
Patient Name: Edwige Magallanes Procedure Date: 03/15/2019 1:45 PM Date of : 1960 Age: 58 Room: [facility] Gender: Female Note Status: Finalized Procedure: Upper GI endoscopy Indications: Epigastric abdominal pain, Personal history of digestive disease (unspecified) Providers: Paolo Klein MD Referring MD: Ruslan JAQUEZ MD Requesting Provider: Medicines: Monitored Anesthesia Care Complications: No immediate complications. Procedure: Pre-Anesthesia Assessment: - Prior to the procedure, a History and Physical was performed, and patient medications and allergies were reviewed. The patient is competent. The risks and benefits of the procedure and the sedation options and risks were discussed with the patient. All questions were answered and informed consent was obtained. Patient identification and proposed procedure were verified by the physician, the nurse and the anesthesiologist in the procedure room. Mental Status Examination: alert and oriented. Airway Examination: normal oropharyngeal airway and neck mobility. Respiratory Examination: clear to auscultation. CV Examination: normal. Prophylactic Antibiotics: The patient does not require prophylactic antibiotics. Prior Anticoagulants: The patient has taken no previous anticoagulant or antiplatelet agents. ASA Grade Assessment: II - A patient with mild systemic disease. After reviewing the risks and benefits, the patient was deemed in satisfactory condition to undergo the procedure. The anesthesia plan was to use monitored anesthesia care (MAC). Immediately prior to administration of medications, the patient was re-assessed for adequacy to receive sedatives. The heart rate, respiratory rate, oxygen saturations, blood pressure, adequacy of pulmonary ventilation, and response to care were monitored throughout the procedure. The physical status of the patient was re-assessed after the procedure. The Endoscope was introduced through the mouth, and advanced to the second part of duodenum. The upper GI endoscopy was accomplished without difficulty. The patient tolerated the procedure well. Findings: The Z-line was regular and was found 39 cm from the incisors. Non-severe esophagitis with no bleeding was found in the distal esophagus. A small hiatal hernia was present. Scattered minimal inflammation characterized by erythema and granularity was found in the gastric antrum. Four biopsies were obtained with cold forceps for histology in the gastric antrum, as well as four biopsies in the gastric body and four biopsies in the gastric fundus. Verification of patient identification for the specimen was done by the physician and nurse using the patient's name, date and medical record number. Estimated blood loss was minimal. The duodenal bulb and second portion of the duodenum were normal. Impression: - Z-line regular, 39 cm from the incisors. - Non-severe reflux esophagitis. - Small hiatal hernia. - Gastritis. - Normal duodenal bulb and second portion of the duodenum. - Biopsies performed in the gastric antrum, in the gastric body and in the gastric fundus. Recommendation: - Patient has a contact number available for emergencies. The signs and symptoms of potential delayed complications were discussed with the patient. Return to normal activities tomorrow. Written discharge instructions were provided to the patient. - Resume previous diet. - Continue present medications. - Use Pepcid (famotidine) 20 mg PO BID for 8 weeks. - Follow an antireflux regimen. - Await pathology results. - Repeat upper endoscopy in 1 year for surveillance. - Return to GI clinic in 1 year. - Return to primary care physician. Paolo Klein MD Paolo Klein MD 03/15/2019 2:38:45 PM Electronically signed by Paolo Klein MD Number of Addenda: 0 Note Initiated On: 03/15/2019 1:45 PM Estimated Blood Loss: Estimated blood loss was minimal.
[2019-03-15] MEDS ORDERED: PROPOFOL 500 MG/50 ML VIAL As Ordered ONE (14:41)
[2019-03-15] MEDS ORDERED: LIDOCAINE 2% INJ 100 MG/5 ML SDV (FOR ANES.) As Ordered ONE (14:41)
[2019-03-15] MEDS ORDERED: fentaNYL 100 MCG/2 ML INJECTION (J3010) As Ordered ONE (14:41)
--- NOTE | 2019-03-15 14:42 | ROOR ---
Patient Name: Edwige Magallanes Procedure Date: 03/15/2019 1:46 PM Date of : 1960 Age: 58 Room: [facility] Gender: Female Note Status: Finalized Procedure: Colonoscopy Indications: Hematochezia Providers: Paolo Klein MD Referring MD: Ruslan JAQUEZ MD Requesting Provider: Medicines: Monitored Anesthesia Care Complications: No immediate complications. Procedure: Pre-Anesthesia Assessment: - Prior to the procedure, a History and Physical was performed, and patient medications and allergies were reviewed. The patient is competent. The risks and benefits of the procedure and the sedation options and risks were discussed with the patient. All questions were answered and informed consent was obtained. Patient identification and proposed procedure were verified by the physician, the nurse and the anesthesiologist in the procedure room. Mental Status Examination: alert and oriented. CV Examination: normal. Prophylactic Antibiotics: The patient does not require prophylactic antibiotics. Prior Anticoagulants: The patient has taken no previous anticoagulant or antiplatelet agents. After reviewing the risks and benefits, the patient was deemed in satisfactory condition to undergo the procedure. The anesthesia plan was to use monitored anesthesia care (MAC). Immediately prior to administration of medications, the patient was re-assessed for adequacy to receive sedatives. The heart rate, respiratory rate, oxygen saturations, blood pressure, adequacy of pulmonary ventilation, and response to care were monitored throughout the procedure. The physical status of the patient was re-assessed after the procedure. The Colonoscope was introduced through the anus and advanced to the terminal ileum, with identification of the appendiceal orifice and IC valve. The colonoscopy was performed without difficulty. The patient tolerated the procedure well. The quality of the bowel preparation was good. The terminal ileum, ileocecal valve, appendiceal orifice, and rectum were photographed. Scope insertion time was 3 minutes. Scope withdrawal time was 9 minutes. The total duration of the procedure was 12 minutes. Findings: The perianal and digital rectal examinations were normal. The terminal ileum appeared normal. The ileocecal valve was moderately lipomatous. Biopsies were taken with a cold forceps for histology. Verification of patient identification for the specimen was done by the physician and nurse using the patient's name, date and medical record number. Estimated blood loss was minimal. Two sessile polyps were found in the transverse colon. The polyps were 4 to 6 mm in size. These polyps were removed with a cold snare. Resection and retrieval were complete. A 6 mm polyp was found in the rectum. The polyp was sessile. The polyp was removed with a cold snare. Resection and retrieval were complete. Multiple small and large-mouthed diverticula were found from sigmoid to descending colon. There was no evidence of diverticular bleeding. Non-bleeding external and internal hemorrhoids were found during retroflexion. The hemorrhoids were small. Impression: - The examined portion of the ileum was normal. - Lipomatous ileocecal valve. Biopsied. - Two 4 to 6 mm polyps in the transverse colon, removed with a cold snare. Resected and retrieved. - One 6 mm polyp in the rectum, removed with a cold snare. Resected and retrieved. - Moderate diverticulosis from sigmoid to descending colon. There was no evidence of diverticular bleeding. - Non-bleeding external and internal hemorrhoids. Recommendation: - Patient has a contact number available for emergencies. The signs and symptoms of potential delayed complications were discussed with the patient. Return to normal activities tomorrow. Written discharge instructions were provided to the patient. - High fiber diet. - Continue present medications. - Await pathology results. - Repeat colonoscopy in 3 - 5 years for surveillance based on pathology results. - Telephone GI clinic for pathology results 1 - 2 weeks. Please call GI clinic @ [phone]. - Return to GI clinic in 1 year. - Return to primary care physician. Paolo Klein MD Paolo Klein MD 03/15/2019 2:42:28 PM Electronically signed by Paolo Klein MD Number of Addenda: 0 Note Initiated On: 03/15/2019 1:46 PM Estimated Blood Loss: Estimated blood loss was minimal.
[2019-03-15 15:11] VITALS: BP 147/82
== END 2019-03-15 15:11 | disposition home or self-care (01) ==
LOC: M OPP 10:50
PROVIDERS: ATTEND Internal Medicine Gastroenterology
DX: K63.89 Other specified diseases of intestine (principal); K63.5 Polyp of colon; K62.1 Rectal polyp; K57.30 Diverticulosis of large intestine without perforation or abscess without bleeding; K92.1 Melena; K21.0 Gastro-esophageal reflux disease with esophagitis; K29.70 Gastritis, unspecified, without bleeding; R10.13 Epigastric pain; Z87.19 Personal history of other diseases of the digestive system; K44.9 Diaphragmatic hernia without obstruction or gangrene; Z79.899 Other long term (current) drug therapy; Z88.2 Allergy status to sulfonamides
CPT/HCPCS: 43239; 45380; 45385; 88305; J3010

== ENCOUNTER 2019-03-28 12:09 | Emergency (ER) | payer MEDICAID, MEDICARE, OTHER ==
[~2019-03-28] VITALS: Ht 154.9 cm; Wt 90.9 kg
[~2019-03-28 12:09] MED LIST changes: -NS 1,000 ML IV ONE
[2019-03-28] MEDS ORDERED: NS 1,000 ML IV SCH (12:47)
[2019-03-28] MEDS ORDERED: KETOROLAC 30 MG/ML VIAL (J1885) IV ONE (13:00)
[2019-03-28] MEDS ORDERED: ONDANSETRON 4MG/2ML VIAL (J2405) IV ONE (13:00)
[2019-03-28 13:50] LABS: BASO % 0.4 % (0.0-1.0); EOS # 0.1 10^3/uL (0.0-0.5); EOS % 1.9 % (0.0-3.0); HEMOGLOBIN 14.6 g/dl (12.0-15.5); LYMPH # 1.2 10^3/uL (1.5-5.0); LYMPH % 23.3 % (24.0-44.0); MEAN CORPUSCULAR HGB CONC 32.4 g/dl (32.0-36.5); MEAN CORPUSCULAR VOLUME 83.3 fl (80.0-96.0); MONO # 0.5 10^3/uL (0.0-0.8); MONO % 8.8 % (0.0-5.0); NEUTROPHILS # 3.4 10^3/uL (1.5-8.5); NEUTROPHILS % 65.4 % (36.0-66.0); PLATELET COUNT, AUTOMATED 269 10^3/uL (150-450); WHITE BLOOD COUNT 5.2 10^3/uL (4.0-10.0)
[2019-03-28 14:05] LABS: INR 1.07; PROTHROMBIN TIME 13.6 SECONDS (11.8-14.0)
[2019-03-28 14:16] LABS: ALBUMIN 3.9 GM/DL (3.2-5.2); ALT/SGPT 34 U/L (12-78); AMYLASE 68 U/L (25-115); BILIRUBIN,DIRECT < 0.1 MG/DL (0.0-0.2); BILIRUBIN,TOTAL 0.5 MG/DL (0.2-1.0); BLOOD UREA NITROGEN 16 MG/DL (7-18); CALCIUM LEVEL 9.2 MG/DL (8.5-10.1); CARBON DIOXIDE LEVEL 26 MEQ/L (21-32); CHLORIDE LEVEL 106 MEQ/L (98-107); CREATININE FOR GFR 0.73 MG/DL (0.55-1.30); GLOMERULAR FILTRATION RATE > 60.0 (>51); GLUCOSE, FASTING 88 MG/DL (70-100); LIPASE 208 U/L (73-393); POTASSIUM SERUM 3.7 MEQ/L (3.5-5.1); SODIUM LEVEL 142 MEQ/L (136-145); TOTAL PROTEIN 6.9 GM/DL (6.4-8.2)
[2019-03-28] MEDS ORDERED: ISOVUE-370 76% 100ML VIAL (Q9967) As Ordered ONE (14:19)
--- NOTE | 2019-03-28 15:50 | REP ---
CT abdomen and pelvis with IV but without oral contrast: History: Abdomen pain. No comparison CT study. CT contrast dose: 100 mL of intravenous Isovue 370. 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 The lung bases are clear on axial CT images. There is a tiny sliding type hiatal hernia. There is mild diffuse fatty infiltration of the liver. A calcified gallstone is visible in the dependent portion of the gallbladder. No wall thickening is seen. Pancreas is unremarkable. No adrenal lesion is observed. There is some cortical scarring focally in the lateral aspect of the right mid kidney. The kidneys enhance symmetrically are morphologically intact otherwise. No splenic abnormality is observed. The appendix is surgically absent. Small and large intestinal bowel loops are normal in the abdomen and pelvis. There are scattered normal-sized small bowel mesenteric lymph nodes. The largest of these is a paraduodenal node which measures 9 x 17 x 8 mm. No uterine or ovarian abnormality is appreciated. Urinary bladder is unremarkable. No abdominal wall defect is appreciated. Impression: Cholelithiasis. Focal cortical scarring right mid kidney. Minimal diffuse fatty infiltration of the liver. Post appendectomy. Scattered normal-sized mesenteric lymph nodes. Otherwise unremarkable CT study abdomen and pelvis. Electronically Signed by Ming Lopez MD 03/28/2019 04:07 P
[2019-03-28 16:27] VITALS: BP 136/74
== END 2019-03-28 16:31 | disposition home or self-care (01) ==
LOC: M ED 12:09
DX: R10.11 Right upper quadrant pain (principal); K80.00 Calculus of gallbladder with acute cholecystitis without obstruction; K44.9 Diaphragmatic hernia without obstruction or gangrene; Z90.89 Acquired absence of other organs; K76.0 Fatty (change of) liver, not elsewhere classified; I11.9 Hypertensive heart disease without heart failure; Z88.2 Allergy status to sulfonamides; Z79.899 Other long term (current) drug therapy
CPT/HCPCS: 74177; 80048; 80076; 81001; 82150; 83690; 85025; 85610; 96361; 96374; 96375; 99284; J1885; J2405; Q9967

== ENCOUNTER 2019-03-30 08:04 | Emergency (ER) | payer MEDICARE, OTHER ==
[~2019-03-30] VITALS: Ht 154.9 cm; Wt 99.5 kg
[2019-03-30] MEDS ORDERED: FLEET OIL RETENTION ENEMA PR PRN (08:45)
[2019-03-30 10:03] VITALS: BP 162/84
== END 2019-03-30 10:22 | disposition home or self-care (01) ==
LOC: M ED 08:04
DX: K56.41 Fecal impaction (principal); I10 Essential (primary) hypertension; J45.909 Unspecified asthma, uncomplicated; F32.9 Major depressive disorder, single episode, unspecified; F41.9 Anxiety disorder, unspecified; Z88.2 Allergy status to sulfonamides

== ENCOUNTER → 2019-04-24 | Outpatient (REF) | payer MEDICARE ==
[2019-04-24 18:43] LABS: APPEARANCE, URINE CLEAR (CLEAR); BACTERIA, URINE AUTO NEGATIVE (NEGATIVE); BILIRUBIN, URINE AUTO NEGATIVE (NEGATIVE); BLOOD, URINE BLOOD NEGATIVE (NEGATIVE); COLOR, URINE COLORLESS (YELLOW); GLUCOSE, URINE (UA) AUTO NEGATIVE (NEGATIVE); KETONE, URINE AUTO NEGATIVE (NEGATIVE); LEUKOCYTE ESTERASE, URINE AUTO NEGATIVE (NEGATIVE); MUCUS, URINE SMALL (NEGATIVE); NITRITE, URINE AUTO NEGATIVE (NEGATIVE); PROTEIN, URINE AUTO NEGATIVE (NEGATIVE); RBC, URINE AUTO 0 /HPF (0-3); SPECIFIC GRAVITY URINE AUTO 1.003 (1.002-1.035); SQUAMOUS EPITHELIAL CELL UR AU 1 /HPF (0-6); UROBILINOGEN, URINE AUTO 0.2 mg/dL (0.0-2.0); WBC, URINE AUTO 0 /HPF (0-3)
== END ==
LOC: M LAB REF 17:23
PROVIDERS: ATTEND Nurse Practitioner Family
DX: R30.0 Dysuria (principal)

== ENCOUNTER → 2019-05-31 | Outpatient (CLI) | payer MEDICARE ==
[2019-05-31 15:00] LABS: BASO % 0.5 % (0.0-1.0); EOS # 0.1 10^3/uL (0.0-0.5); EOS % 2.4 % (0.0-3.0); HEMATOCRIT 43.7 % (36.0-47.0); HEMOGLOBIN 14.9 g/dl (12.0-15.5); LYMPH % 22.8 % (24.0-44.0); MEAN CORPUSCULAR HEMOGLOBIN 28.1 pg (27.0-33.0); MEAN CORPUSCULAR HGB CONC 34.1 g/dl (32.0-36.5); MEAN CORPUSCULAR VOLUME 82.5 fl (80.0-96.0); MONO # 0.4 10^3/uL (0.0-0.8); MONO % 9.1 % (0.0-5.0); NEUTROPHILS # 2.7 10^3/uL (1.5-8.5); NEUTROPHILS % 64.7 % (36.0-66.0); PLATELET COUNT, AUTOMATED 244 10^3/uL (150-450); WHITE BLOOD COUNT 4.2 10^3/uL (4.0-10.0)
== END ==
LOC: M LAB 14:22
PROVIDERS: ATTEND Physician Assistant
DX: J35.02 Chronic adenoiditis (principal)

== ENCOUNTER → 2019-06-12 | Outpatient (CLI) | payer MEDICARE ==
--- NOTE | 2019-06-12 13:06 | REP ---
BILATERAL SCREENING DIGITAL MAMMOGRAM WITH 3D TOMOSYNTHESIS: There are no palpable abnormalities or other breast complaints. The the patient states she has not had a clinical breast examination over a year. The Tyrer-Cuzick Score is: 17.1% . Comparison is the 01/12/2017 and 11/27/2013. There are scattered areas of fibroglandular density. There is no dominant mass, micro calcific cluster or architectural distortion that would indicate malignancy. There are no additional findings on 3D tomosynthesiss. There is no change from the prior study. Impression: BIRADS/ACR category 1 mammogram. Negative. Recommendation: Routine annual screening mammography. This mammogram was interpreted with the aid of a FDA approved computer-aided detection system. A. Negative mammogram reports should not delay biopsy if a dominant or clinically suspicious mass is present. B. Not all breast cancers are identified by mammography or tomosynthesis. C. Adenosis and dense breasts may obscure an underlying neoplasm. Patient letter M1. Electronically Signed by Maynor Arredondo MD 06/12/2019 12:56 P
== END ==
LOC: M RAD 10:57
PROVIDERS: ATTEND Nurse Practitioner Family
DX: Z12.31 Encounter for screening mammogram for malignant neoplasm of breast (principal)

== ENCOUNTER → 2019-07-05 | Outpatient (CLI) | payer MEDICARE ==
--- NOTE | 2019-07-05 13:49 | REP ---
Clinical: Pain. Arthralgia. Technique: AP, lateral, swimmers views of the thoracic spine. Findings: Alignment and kyphosis maintained. Vertebral bodies are intact. No acute fracture / compression injury or subluxation. Mild degenerative changes include bridging osteophytes along with minimal endplate sclerosis. Impression: Mild and age-appropriate changes. Electronically Signed by Humberto Velasquez MD 07/05/2019 01:41 P
--- NOTE | 2019-07-05 13:50 | REP ---
Clinical: Lower back pain . Technique: AP, lateral, bilateral oblique, and coned-down views. Findings: Alignment and lordosis is maintained. The vertebral bodies including transverse process and spinous processes are intact and there is no evidence for acute fracture / compression injury or subluxation. Endplate sclerosis and disc space narrowing at L5-S1 is appreciated along with hypertrophic facet changes. Mild age-related changes are noted throughout the remainder of the lumbar spine with very subtle early spurring. Impression: Focal degenerative spondylosis at L5-S1. Electronically Signed by Humberto Velasquez MD 07/05/2019 01:42 P
--- NOTE | 2019-07-05 13:53 | REP ---
Clinical: Pain. Polyarthralgia. Technique: AP, lateral, bilateral oblique views of the right and left hand. Findings: Left hand demonstrates early moderate osteoarthritic changes involving the first and fifth proximal interphalangeal joints with subchondral sclerosis, joint space narrowing, and marginal spurring. Mild degenerative changes noted throughout the remainder of the interphalangeal joints with subchondral sclerosis and minimal joint space narrowing and very mild early spurring. No acute fracture or dislocation. Right hand demonstrates mild arthritic changes involving the interphalangeal joints including subchondral sclerosis with minimal joint space narrowing. Early spurring noted at the second and third interphalangeal joints as well as at the fifth distal interphalangeal joint. No acute fracture or dislocation. Impression: Mild/early moderate osteoarthritic changes. Electronically Signed by Humberto Velasquez MD 07/05/2019 01:45 P
--- NOTE | 2019-07-05 13:55 | REP ---
Clinical: Pain. Polyarthralgia. Technique: AP, lateral, bilateral oblique views of the right and left foot. Findings: Right foot demonstrates generalized age-related changes along with mild degenerative change at the first metatarsophalangeal joint where subchondral sclerosis and very early spurring is appreciated. Lateral view demonstrates calcaneal heal spur. No acute fracture or dislocation. Left foot demonstrates generalized age-related changes along with mild degenerative change at the first metatarsophalangeal joint with subchondral sclerosis, joint space narrowing and early spurring. Lateral view demonstrates calcaneal heal spur. No acute fracture or dislocation. Impression: Mild degenerative changes essentially noted at the bilateral first MTP joints Electronically Signed by Humberto Velasquez MD 07/05/2019 01:47 P
== END ==
LOC: M LAB 12:52
PROVIDERS: ATTEND Internal Medicine
DX: M54.6 Pain in thoracic spine (principal); M19.071 Primary osteoarthritis, right ankle and foot; M19.072 Primary osteoarthritis, left ankle and foot; M19.041 Primary osteoarthritis, right hand; M19.042 Primary osteoarthritis, left hand; M47.817 Spondylosis without myelopathy or radiculopathy, lumbosacral region

== ENCOUNTER → 2019-07-05 | Outpatient (REF) | payer MEDICARE ==
[2019-07-05 13:24] LABS: COMPLEMENT C3 139 MG/DL (90-180); COMPLEMENT C4 39 MG/DL (10-40); RHEUMATOID FACTOR QUANT < 10.0 IU/ML (<15.0)
[2019-07-09 00:07] LABS: ANA (HEP2) Negative (.); ANTI DS-DNA AB Negative (Negative); CYCLIC CITRULLINATED PEPTIDE 13 units (0-19); RNP ANTIBODY < 0.2 AI (0.0-0.9); SMITHS ANTIBODY < 0.2 AI (0.0-0.9); SSA SJOGRENS A <0.2 AI (0.0-0.9); SSB SJOGRENS B <0.2 AI (0.0-0.9)
== END ==
LOC: M SFHCRHEU 11:34
PROVIDERS: ATTEND Internal Medicine
DX: M25.50 Pain in unspecified joint (principal); D72.819 Decreased white blood cell count, unspecified

== ENCOUNTER → 2019-07-15 | Outpatient (CLI) | payer MEDICARE, MEDICAID ==
--- NOTE | 2019-07-15 15:49 | REP ---
ULTRASOUND SOFT TISSUES NECK AND THYROID: Real-time sonographic evaluation of the soft tissues of the neck performed for swelling bilaterally. No mass or fluid collection is seen in the soft tissues of the neck including the supraclavicular regions. Thyroid is normal in size, right lobe measuring 4.4 x 1.8 x 1.8 cm and left lobe 4.3 x 2.1 x 1.8 cm. Cyst in the upper pole of the right lobe measures 6 mm in diameter. There is an oval heterogeneous nodule in the left upper aspect in the left upper lobe measuring 2.8 x 1.5 x 1.9 cm. IMPRESSION: No mass or fluid collection in the bilateral soft tissues of the neck. There is a solid nodule in the left lobe of thyroid with a maximum diameter of 2.8 cm. Recommend FNA. Electronically Signed by Maynor Solares MD 07/16/2019 07:47 P
== END ==
LOC: M RAD 13:29
PROVIDERS: ATTEND Internal Medicine Hematology & Oncology
DX: R59.9 Enlarged lymph nodes, unspecified (principal)

== ENCOUNTER → 2019-09-24 | Outpatient (REF) | payer MEDICARE | LOC: M LAB REF 08:15 | PROVIDERS: ATTEND Dermatology | DX: D22.5 Melanocytic nevi of trunk (principal) ==

== ENCOUNTER → 2019-10-01 | Outpatient (REF) | payer MEDICARE | LOC: M LAB REF 16:56 | PROVIDERS: ATTEND Internal Medicine Endocrinology, Diabetes & Metabolism | DX: E04.1 Nontoxic single thyroid nodule (principal) ==

== ENCOUNTER → 2019-10-28 | Outpatient (CLI) | payer MEDICARE ==
[2019-10-28 17:24] LABS: BASO % 0.5 % (0.0-1.0); EOS # 0.1 10^3/uL (0.0-0.5); EOS % 2.4 % (0.0-3.0); HEMATOCRIT 41.7 % (36.0-47.0); HEMOGLOBIN 13.8 g/dl (12.0-15.5); LYMPH % 27.2 % (24.0-44.0); MEAN CORPUSCULAR HEMOGLOBIN 27.7 pg (27.0-33.0); MEAN CORPUSCULAR HGB CONC 33.1 g/dl (32.0-36.5); MEAN CORPUSCULAR VOLUME 83.6 fl (80.0-96.0); MONO # 0.4 10^3/uL (0.0-0.8); MONO % 9.2 % (0.0-5.0); NEUTROPHILS # 2.3 10^3/uL (1.5-8.5); NEUTROPHILS % 60.4 % (36.0-66.0); PLATELET COUNT, AUTOMATED 245 10^3/uL (150-450); RED BLOOD COUNT 4.99 10^6/uL (4.00-5.40); WHITE BLOOD COUNT 3.8 10^3/uL (4.0-10.0)
[2019-10-28 17:49] LABS: ALBUMIN 3.7 GM/DL (3.2-5.2); ALT/SGPT 29 U/L (12-78); BILIRUBIN,TOTAL 0.6 MG/DL (0.2-1.0); BLOOD UREA NITROGEN 13 MG/DL (7-18); CALCIUM LEVEL 8.6 MG/DL (8.5-10.1); CARBON DIOXIDE LEVEL 26 MEQ/L (21-32); CHLORIDE LEVEL 109 MEQ/L (98-107); CREATININE FOR GFR 0.86 MG/DL (0.55-1.30); GLOMERULAR FILTRATION RATE > 60.0 (>51); GLUCOSE, FASTING 154 MG/DL (70-100); POTASSIUM SERUM 3.8 MEQ/L (3.5-5.1); SODIUM LEVEL 143 MEQ/L (136-145); TOTAL PROTEIN 6.7 GM/DL (6.4-8.2)
== END ==
LOC: M LAB 15:56
PROVIDERS: ATTEND Internal Medicine Hematology & Oncology
DX: D72.819 Decreased white blood cell count, unspecified (principal)

== ENCOUNTER → 2019-11-26 | Outpatient (REF) | payer MEDICARE, MEDICAID ==
[2019-11-26 19:58] LABS: APPEARANCE, URINE CLEAR (CLEAR); BACTERIA, URINE AUTO NEGATIVE (NEGATIVE); BILIRUBIN, URINE AUTO NEGATIVE (NEGATIVE); BLOOD, URINE BLOOD NEGATIVE (NEGATIVE); COLOR, URINE STRAW (YELLOW); GLUCOSE, URINE (UA) AUTO NEGATIVE (NEGATIVE); KETONE, URINE AUTO NEGATIVE (NEGATIVE); LEUKOCYTE ESTERASE, URINE AUTO NEGATIVE (NEGATIVE); NITRITE, URINE AUTO NEGATIVE (NEGATIVE); PROTEIN, URINE AUTO NEGATIVE (NEGATIVE); RBC, URINE AUTO 0 /HPF (0-3); SPECIFIC GRAVITY URINE AUTO 1.003 (1.002-1.035); SQUAMOUS EPITHELIAL CELL UR AU 0 /HPF (0-6); UROBILINOGEN, URINE AUTO 0.2 mg/dL (0.0-2.0); WBC, URINE AUTO 0 /HPF (0-3)
== END ==
LOC: M SMT 17:16
PROVIDERS: ATTEND Nurse Practitioner Family
DX: R10.9 Unspecified abdominal pain (principal)

== ENCOUNTER → 2019-12-04 | Outpatient (CLI) | payer MEDICARE, MEDICAID ==
--- NOTE | 2019-12-04 11:01 | REP ---
Clinical: Left flank pain. Technique: Real time sosa scale and color evaluation using curved array transducer. Findings: The bilateral kidneys are normal in contour, size, echogenicity, and vascularity. No hydronephrosis, nephrolithiasis, cystic or renal mass lesion. No perinephric fluid collection. Right kidney measures 10.8 x 5.5 x 4.9 cm (RI 0.57). Left kidney measures 10.4 x 5.1 x 4.8 cm (RI 0.64). Bladder is under distended and grossly normal. Impression: Normal renal ultrasound. Electronically Signed by Humberto Velasquez MD 12/04/2019 10:51 A
== END ==
LOC: M PLAIMG 09:48
PROVIDERS: ATTEND Nurse Practitioner Family
DX: R10.9 Unspecified abdominal pain (principal)

== ENCOUNTER → 2020-02-27 | Outpatient (REF) | payer MEDICARE, MEDICAID ==
[2020-02-27 13:39] LABS: APPEARANCE, URINE CLEAR (CLEAR); BACTERIA, URINE AUTO NEGATIVE (NEGATIVE); BILIRUBIN, URINE AUTO NEGATIVE (NEGATIVE); BLOOD, URINE BLOOD NEGATIVE (NEGATIVE); COLOR, URINE STRAW (YELLOW); GLUCOSE, URINE (UA) AUTO NEGATIVE (NEGATIVE); KETONE, URINE AUTO NEGATIVE (NEGATIVE); LEUKOCYTE ESTERASE, URINE AUTO NEGATIVE (NEGATIVE); NITRITE, URINE AUTO NEGATIVE (NEGATIVE); PROTEIN, URINE AUTO NEGATIVE (NEGATIVE); RBC, URINE AUTO 0 /HPF (0-3); SPECIFIC GRAVITY URINE AUTO 1.004 (1.002-1.035); SQUAMOUS EPITHELIAL CELL UR AU 0 /HPF (0-6); UROBILINOGEN, URINE AUTO 0.2 mg/dL (0.0-2.0); WBC, URINE AUTO 0 /HPF (0-3)
== END ==
LOC: M SMT 12:59
PROVIDERS: ATTEND Nurse Practitioner Family
DX: R35.0 Frequency of micturition (principal)

== ENCOUNTER → 2020-05-26 | Outpatient (CLI) | payer MEDICARE, MEDICAID ==
[2020-05-26 09:30] LABS: CHOLESTEROL RISK RATIO 3.092 (<5)
== END ==
LOC: M LAB 08:02
PROVIDERS: ATTEND Physician Assistant
DX: Z13.220 Encounter for screening for lipoid disorders (principal); Z79.899 Other long term (current) drug therapy

== ENCOUNTER → 2020-05-26 | Outpatient (CLI) | payer MEDICARE, MEDICAID ==
--- NOTE | 2020-05-26 09:44 | REP ---
INDICATION: ABDOMINAL PAIN/PT HAS LABS FIRST TECHNIQUE: Real time B-mode sosa scale and color Doppler ultrasound examination using curved array transducer. FINDINGS: Gallbladder demonstrates multiple mobile gallstones measuring up to 13 mm without wall thickening or pericholecystic fluid. No biliary ductal dilatation is appreciated and the common bile duct measures 3.4 mm diameter. Liver demonstrates coarsened echotexture with mild increased echogenicity suggesting hepatocellular disease and fatty infiltration. No focal hepatic lesion identified. The pancreas is normal. The spleen measures 12.7 x 11.9 x 5.7 cm (SI: 861) without focal splenic lesion identified. The bilateral kidneys are normal in reniform shape without hydronephrosis although partial duplication cannot be excluded. Right kidney measures 10.5 x 6.1 x 4.6 cm. Left kidney measures 9.8 x 4.8 x 4.7 cm. No cystic or renal mass lesions are identified. The abdominal aorta appears normal and measures 2.2 cm maximal diameter. No ascites appreciated in the visualized abdomen. Color Doppler evaluation demonstrates normal flow velocities and wave patterns to the main and intrahepatic portal veins and main splenic vein. Main portal vein: 12.8 cm/sec Splenic vein: 21.2 cm/sec (32.8 cm/sec at the splenic hilum). IMPRESSION: 1. Cholelithiasis. No sonographic evidence for cholecystitis. 2. Hepatocellular disease and fatty infiltration to the liver without focal hepatic lesion identified. 3. Splenomegaly without focal splenic lesion. <Electronically signed by Humberto Velasquez > 05/26/20 0992
== END ==
LOC: M RAD 08:06
PROVIDERS: ATTEND Internal Medicine Gastroenterology
DX: R10.84 Generalized abdominal pain (principal); K80.20 Calculus of gallbladder without cholecystitis without obstruction; R16.1 Splenomegaly, not elsewhere classified

== ENCOUNTER → 2020-06-18 | Outpatient (CLI) | payer MEDICARE, MEDICAID | LOC: M LABSMTC 10:50 | PROVIDERS: ATTEND Anesthesiology | DX: Z01.812 Encounter for preprocedural laboratory examination (principal); Z20.822 Contact with and (suspected) exposure to COVID-19 ==

== ENCOUNTER 2020-06-23 12:56 | Day surgery (SDC) | payer MEDICARE, MEDICAID ==
[~2020-06-23] VITALS: Ht 154.9 cm; Wt 95.3 kg
[~2020-06-23 12:56] MED LIST changes: +LIDOCAINE 2% 100MG/5ML SDV (FOR ANES.) As Ordered ONE; +NS 1,000 ML IV ONE; +fentaNYL 100 MCG/2 ML INJECTION (J3010) As Ordered ONE; +propofoL 200 MG/20 ML VIAL As Ordered ONE
--- NOTE | 2020-06-23 15:06 | ROOR ---
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 Procedure: Pre-Anesthesia Assessment: - Prior to the procedure, a History and Physical was performed, and patient medications and allergies were reviewed. The patient is competent. The risks and benefits of the procedure and the sedation options and risks were discussed with the patient. All questions were answered and informed consent was obtained. Patient identification and proposed procedure were verified by the physician, the nurse and the anesthesiologist in the procedure room. Mental Status Examination: alert and oriented. Airway Examination: normal oropharyngeal airway and neck mobility. Respiratory Examination: clear to auscultation. CV Examination: normal. Prophylactic Antibiotics: The patient does not require prophylactic antibiotics. Prior Anticoagulants: The patient has taken no previous anticoagulant or antiplatelet agents. ASA Grade Assessment: II - A patient with mild systemic disease. After reviewing the risks and benefits, the patient was deemed in satisfactory condition to undergo the procedure. The anesthesia plan was to use monitored anesthesia care (MAC). Immediately prior to administration of medications, the patient was re-assessed for adequacy to receive sedatives. The heart rate, respiratory rate, oxygen saturations, blood pressure, adequacy of pulmonary ventilation, and response to care were monitored throughout the procedure. The physical status of the patient was re-assessed after the procedure. The Endoscope was introduced through the mouth, and advanced to the second part of duodenum. The upper GI endoscopy was accomplished without difficulty. The patient tolerated the procedure well. Findings: Non-severe esophagitis with no bleeding was found in the distal esophagus. Biopsies were taken with a cold forceps for histology. Verification of patient identification for the specimen was done by the physician and nurse using the patient's name, date and medical record number. Estimated blood loss was minimal. A medium-sized hiatal hernia was present. Patchy moderate inflammation characterized by erythema and granularity was found in the gastric body and in the gastric antrum. Four biopsies were obtained with cold forceps for histology in the gastric body, as well as four biopsies in the gastric fundus and four biopsies. The duodenal bulb and second portion of the duodenum were normal. Impression: - Non-severe reflux esophagitis. Rule out Solitario's esophagus. Biopsied. - Medium-sized hiatal hernia. - Gastritis. - Normal duodenal bulb and second portion of the duodenum. - Biopsies performed in the gastric body and in the gastric fundus. Recommendation: - Patient has a contact number available for emergencies. The signs and symptoms of potential delayed complications were discussed with the patient. Return to normal activities tomorrow. Written discharge instructions were provided to the patient. - High fiber diet. - Continue present medications. - Await pathology results. - Repeat upper endoscopy in 1 year for surveillance based on pathology results and depending on the symptoms and clinical response. - Telephone GI clinic for pathology results in 2 weeks. - Follow an antireflux regimen. - Use Pepcid (famotidine) 20 mg PO Twice daily ( take patent leather sorter on empty stomach and at bedtime) for 6 weeks. - Return to primary care physician. Procedure Code(s): --- Professional --- 92632, Esophagogastroduodenoscopy, flexible, transoral; with biopsy, single or multiple Diagnosis Code(s): --- Professional --- K21.0, Gastro-esophageal reflux disease with esophagitis K44.9, Diaphragmatic hernia without obstruction or gangrene K29.70, Gastritis, unspecified, without bleeding R10.13, Epigastric pain Z15.09, Genetic susceptibility to other malignant neoplasm CPT copyright 2019 [employer]. All rights reserved. The codes documented in this report are preliminary and upon death surveys coder review may be revised to meet current compliance requirements. Paolo Klein MD Paolo Klein MD 06/23/2020 3:06:10 PM Electronically signed by Paolo Klein MD Number of Addenda: 0 Note Initiated On: 06/23/2020 2:35 PM Estimated Blood Loss: Estimated blood loss was minimal.
[2020-06-23 15:30] VITALS: BP 182/91
== END 2020-06-23 15:32 | disposition home or self-care (01) ==
LOC: M OPP 12:56
PROVIDERS: ATTEND Internal Medicine Gastroenterology
DX: R10.13 Epigastric pain (principal); Z15.09 Genetic susceptibility to other malignant neoplasm; K29.70 Gastritis, unspecified, without bleeding
CPT/HCPCS: 43239; 88305; J3010

== ENCOUNTER → 2020-08-14 | Outpatient (CLI) | payer MEDICARE, MEDICAID ==
[~2020-08-14] MED LIST changes: -LIDOCAINE 2% 100MG/5ML SDV (FOR ANES.) As Ordered ONE; -NS 1,000 ML IV ONE; -fentaNYL 100 MCG/2 ML INJECTION (J3010) As Ordered ONE; -propofoL 200 MG/20 ML VIAL As Ordered ONE
--- NOTE | 2020-08-14 09:39 | REPMRS ---
Patient History The patient states she had a clinical breast exam in July 2020. Patient is postmenopausal. Family history of breast cancer at age 35 in sister, colorectal cancer at age 60 in father, endometrial cancer at age 60 in mother, ovarian cancer at age 50 in maternal aunt, ovarian cancer at age 50 in paternal aunt, colorectal cancer at age 55 in paternal grandfather. 3D TOMOSYNTHESIS WAS PERFORMED. [facility] lifetime risk for breast cancer is 16.6%. Volpara breast density b. Digital Woman Screen Mammo: August 14, 2020 - Exam #: [id number] Bilateral CC and MLO view(s) were taken. Technologist: RT Jarrell Prior study comparison: June 12, 2019, bilateral digital mammo screening bilat, performed at [facility]. March 30, 2018, digital mammo diagnostic bilateral, performed at [facility]. FINDINGS: There are scattered fibroglandular densities. There has been no change in the appearance of the mammogram from the prior studies. There is a mild amount of residual fibroglandular tissue which is fairly symmetric. There is no interval development of dominant mass, architectural distortion, or clustered microcalcification suggestive of malignancy. Assessment: BI-RADS/ACR category 1 mammogram. Negative Mammogram. Recommendation Routine screening mammogram in 1 year (for women over age 40). This mammogram was interpreted with the aid of an FDA-approved computer-aided dectection system. Electronically Signed By: Maynor Solares MD 08/14/20 0939
--- NOTE | 2020-08-14 12:08 | REP ---
INDICATION: HX BREAST CA/UNABLE TO DO MRI/. COMPARISON: Mammogram today. TECHNIQUE: Real-time sonographic evaluation of entire bilateral breasts performed. FINDINGS: No discrete cystic or solid nodule is seen in any portion of the bilateral breasts. IMPRESSION: BIRADS/ACR category 1, negative whole breast ultrasound bilaterally. RECOMMENDATION: Clinical follow-up. <Electronically signed by Maynor Solares > 08/14/20 [id number]
== END ==
LOC: M WHC 08:24
PROVIDERS: ATTEND Specialist
DX: Z12.31 Encounter for screening mammogram for malignant neoplasm of breast (principal); Z85.3 Personal history of malignant neoplasm of breast; Z80.3 Family history of malignant neoplasm of breast; Z80.0 Family history of malignant neoplasm of digestive organs; Z80.49 Family history of malignant neoplasm of other genital organs

== ENCOUNTER 2020-09-26 04:39 | Emergency (ER) | payer MEDICARE, MEDICAID ==
[~2020-09-26] VITALS: Ht 154.9 cm; Wt 96.2 kg
[2020-09-26] MEDS ORDERED: AMOX250C3 (05:08)
[2020-09-26] MEDS ORDERED: IBUP200C25 PO (05:08)
[2020-09-26] MEDS ORDERED: ONDANSETRON 4MG/2ML VIAL IV ONE (06:20)
[2020-09-26] MEDS ORDERED: PIPERACILLIN/TAZOBACTAM SOD 4.5 GM in D5W MINI-BAG PLUS 50 ML IV ONE (06:40)
[2020-09-26] MEDS ORDERED: dexameTHASONE 20MG/5ML VIAL (J1100 PER 1MG) IV ONE (06:40)
[2020-09-26] MEDS ORDERED: KETOROLAC 30 MG/ML 1ML VIAL IV ONE (06:50)
[2020-09-26] MEDS ORDERED: ISOVUE-370 76% 100ML VIAL As Ordered ONE (07:59)
[2020-09-26 08:06] LABS: BASO % 0.3 % (0.0-1.0); EOS % 0.1 % (0.0-3.0); HEMATOCRIT 43.6 % (36.0-47.0); HEMOGLOBIN 14.7 g/dl (12.0-15.5); LYMPH # 0.4 10^3/uL (1.5-5.0); LYMPH % 4.6 % (24.0-44.0); MEAN CORPUSCULAR HEMOGLOBIN 27.7 pg (27.0-33.0); MEAN CORPUSCULAR HGB CONC 33.7 g/dl (32.0-36.5); MEAN CORPUSCULAR VOLUME 82.3 fl (80.0-96.0); MONO # 0.6 10^3/uL (0.0-0.8); MONO % 7.9 % (2.0-8.0); NEUTROPHILS # 6.8 10^3/uL (1.5-8.5); NEUTROPHILS % 86.6 % (36.0-66.0); PLATELET COUNT, AUTOMATED 216 10^3/uL (150-450); WHITE BLOOD COUNT 7.8 10^3/uL (4.0-10.0)
[2020-09-26] MEDS ORDERED: hydroCHLOROthiazide 12.5 MG CAPSULE PO ONE (08:20)
[2020-09-26 08:37] LABS: ALBUMIN 3.8 GM/DL (3.2-5.2); BILIRUBIN,DIRECT 0.3 MG/DL (0.0-0.2); BILIRUBIN,TOTAL 1.3 MG/DL (0.2-1.0); TOTAL PROTEIN 6.6 GM/DL (6.4-8.2)
--- NOTE | 2020-09-26 08:39 | REP ---
INDICATION: dental pain /right sided lymphadentitis. COMPARISON: None. TECHNIQUE: CT soft tissues neck following the intravenous administration of 75 cc Isovue 370. Sagittal and coronal reconstruction images performed. FINDINGS: There is enlargement and inflammatory change involving the right submandibular gland. There is inflammatory change in the surrounding soft tissues. No abscess is seen. Adjacent lymph nodes are minimally prominent. No sialolith is visualized. The left submandibular gland and bilateral parotid glands are unremarkable. The airway is patent and unremarkable. There is mild mucosal thickening in the inferior right maxillary sinus. Few subcentimeter right thyroid nodules are seen. There is a 1 cm left thyroid nodule. There are mild degenerative changes of the cervical spine. The visualized lung apices are clear. IMPRESSION: There are findings of sialadenitis, with inflammation of the right submandibular gland. No abscess. No significantly enlarged lymph nodes. <Electronically signed by Maynor Solares > 09/26/20 [id number]
--- NOTE | 2020-09-26 08:40 | REP ---
INDICATION: SEPSIS/SHOCK. COMPARISON: 10/19/2017. TECHNIQUE: Single portable AP view of the chest was performed. FINDINGS: There is no acute infiltrate or pulmonary edema. Lungs are clear. The heart is not significantly enlarged. The mediastinal silhouette is unremarkable. The visualized osseous structures are intact.There is mild elevation of the right hemidiaphragm unchanged. IMPRESSION: No acute pulmonary disease. <Electronically signed by Maynor Solares > 09/26/20 0836
[2020-09-26] MEDS ORDERED: AUGM875T28 PO (08:55)
[2020-09-26 09:14] VITALS: BP 160/84
--- NOTE | 2020-09-26 13:52 | ECGEPIP ---
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
== END 2020-09-26 09:21 | disposition home or self-care (01) ==
LOC: M ED 04:39
DX: K11.20 Sialoadenitis, unspecified (principal); Z88.2 Allergy status to sulfonamides; Z91.040 Latex allergy status
CPT/HCPCS: 36415; 70491; 71045; 80047; 80076; 82150; 83605; 85025; 87040; 93005; 94760; 96365; 96375; 99284; J1100; J1885; J2405; J2543; Q9967

== ENCOUNTER → 2020-10-14 | Outpatient (REF) | payer MEDICARE, MEDICAID ==
[~2020-10-14] MED LIST changes: +AMOX250C3; +AUGM875T28 PO; +IBUP200C25 PO
== END ==
LOC: M LAB REF 17:26
PROVIDERS: ATTEND Podiatrist Foot & Ankle Surgery
DX: D23.72 Other benign neoplasm of skin of left lower limb, including hip (principal)

== ENCOUNTER → 2020-10-21 | Outpatient (CLI) | payer MEDICARE, MEDICAID ==
--- NOTE | 2020-10-21 15:03 | REP ---
INDICATION: NODULE. COMPARISON: 07/15/2019. TECHNIQUE: Real-time sonographic evaluation of thyroid performed. FINDINGS: Both lobes of the thyroid are heterogeneous in echotexture. Right lobe measures 4.6 x 1.4 x 1.6 cm and left lobe 3.8 x 1.7 x 2.2 cm. The appearance of the right lobe is unchanged. In the left lobe there is a heterogeneous nodule again seen measuring 2.0 x 1.6 x 1.8 cm. This appears unchanged. IMPRESSION: Stable exam. <Electronically signed by Maynor Solares > 10/21/20 [id number]
== END ==
LOC: M RAD 12:21
PROVIDERS: ATTEND Specialist
DX: E04.1 Nontoxic single thyroid nodule (principal)

== ENCOUNTER → 2020-11-11 | Outpatient (REF) | payer MEDICARE, MEDICAID | LOC: M SFHCWAGY 18:45 | PROVIDERS: ATTEND Advanced Practice Midwife | DX: Z12.4 Encounter for screening for malignant neoplasm of cervix (principal); R87.618 Other abnormal cytological findings on specimens from cervix uteri | CPT/HCPCS: 87624; G0123 ==

== ENCOUNTER → 2020-12-07 | Outpatient (CLI) | payer MEDICARE, MEDICAID ==
--- NOTE | 2020-12-07 15:59 | REP ---
INDICATION: SHORTNESS OF BREATH- LABS FIRST. COMPARISON: Multiple FINDINGS: The superior mediastinal structures are midline. The cardiac silhouette is unremarkable in size, shape, and position. The diaphragmatic surfaces of the lungs are regular, and the costophrenic angles are clear. The pulmonary lópez are clear. The imaged osseous structures are intact. IMPRESSION: There is no acute cardiopulmonary disease. <Electronically signed by Isma Goff > 12/07/20 [id number]
[2020-12-07 16:09] LABS: HEMATOCRIT 42.8 % (36.0-47.0); HEMOGLOBIN 14.4 g/dl (12.0-15.5); MEAN CORPUSCULAR HEMOGLOBIN 28.1 pg (27.0-33.0); MEAN CORPUSCULAR HGB CONC 33.6 g/dl (32.0-36.5); MEAN CORPUSCULAR VOLUME 83.4 fl (80.0-96.0); PLATELET COUNT, AUTOMATED 263 10^3/uL (150-450); RED BLOOD COUNT 5.13 10^6/uL (4.00-5.40); WHITE BLOOD COUNT 4.4 10^3/uL (4.0-10.0)
[2020-12-07 16:40] LABS: ALBUMIN 3.9 GM/DL (3.2-5.2); ALT/SGPT 31 U/L (12-78); BILIRUBIN,TOTAL 0.6 MG/DL (0.2-1.0); BLOOD UREA NITROGEN 10 MG/DL (7-18); CALCIUM LEVEL 9.3 MG/DL (8.5-10.1); CARBON DIOXIDE LEVEL 29 MEQ/L (21-32); CHLORIDE LEVEL 110 MEQ/L (98-107); CREATININE FOR GFR 0.59 MG/DL (0.55-1.30); GLOMERULAR FILTRATION RATE > 60.0 (>51); GLUCOSE, FASTING 94 MG/DL (70-100); NT-PRO BNP 138 PG/ML (<125); POTASSIUM SERUM 3.9 MEQ/L (3.5-5.1); SODIUM LEVEL 144 MEQ/L (136-145); TOTAL PROTEIN 6.9 GM/DL (6.4-8.2)
== END ==
LOC: M LAB 14:47
PROVIDERS: ATTEND Physician Assistant
DX: R06.02 Shortness of breath (principal); R60.0 Localized edema

== ENCOUNTER → 2020-12-16 | Outpatient (CLI) | payer MEDICARE, MEDICAID ==
--- NOTE | 2020-12-16 14:30 | REP ---
INDICATION: PELVIC PAIN/R10.2. COMPARISON: None. TECHNIQUE: Transvesical scanning only. The patient refused transvaginal imaging. FINDINGS: The uterus measures 7 x 3.3 x 4.1 cm. The parenchymal echo pattern is within normal limits. The endometrial echo complex measures 6 mm in its greatest thickness. The right ovary measures 1.3 x 1.2 x 1.5 cm and is within normal limits. Left ovary measures 1.7 x 1.1 x 1.4 cm is within normal limits. Urinary bladder measures 8 x 4 x 7 cm. IMPRESSION: Limited transvesical pelvic ultrasonography showing no abnormalities. <Electronically signed by Isma Goff > 12/16/20 [id number]
== END ==
LOC: M WHC 12:11
PROVIDERS: ATTEND Advanced Practice Midwife
DX: R10.2 Pelvic and perineal pain (principal)

== ENCOUNTER → 2021-01-20 | Outpatient (REF) | payer MEDICARE, MEDICAID | LOC: M LAB REF 18:45 | PROVIDERS: ATTEND Physician Assistant | DX: D22.5 Melanocytic nevi of trunk (principal); D49.2 Neoplasm of unspecified behavior of bone, soft tissue, and skin ==

== ENCOUNTER → 2021-02-04 | Outpatient (CLI) | payer MEDICARE, MEDICAID ==
--- NOTE | 2021-02-04 17:10 | REP ---
INDICATION: HIGH RISK,MASTODYNA RT, POSTIVIE CDH1, FAMILY HX. COMPARISON: Multiple screening mammograms, the most recent 08/14/2020. TECHNIQUE: Digital screening (2D) mammography was performed bilaterally in the CC and MLO orientations. Additionally, breast tomosynthesis (3D tomography) was performed bilaterally in the CC and MLO orientations. An additional, 2D, focal compression image of the right breast in the CC orientation was obtained. FINDINGS: The Volpara volumetric breast density pattern is b, there are scattered areas of fibroglandular density On the right CC view there is a possible developing isodense asymmetry, therefore, an additional focal compression 2D image in the CC orientation was performed. This demonstrated normal breast tissue. There are no suspicious calcifications, dominant masses, areas of architectural distortion or developing asymmetry is in either breast. IMPRESSION: BIRADS/ACR : Category 1: Negative This patient's [employer] lifetime breast cancer risk assessment score is 16.6%. This mammogram was interpreted with the aid of an FDA-approved computer-aided detection system. The patient states she had a clinical breast exam in July 2020. The patient letter being requested is M1. RECOMMENDATION: Repeat screening mammography recommended 1 year (for women over 40). <Electronically signed by Luis Alfredo James > 02/04/21 [id number]
== END ==
LOC: M WHC 14:46
PROVIDERS: ATTEND Nurse Practitioner Women's Health
DX: Z91.89 Other specified personal risk factors, not elsewhere classified (principal); N64.4 Mastodynia; Z80.3 Family history of malignant neoplasm of breast; Z15.01 Genetic susceptibility to malignant neoplasm of breast

== ENCOUNTER 2021-09-20 16:37 | Emergency (ER) | payer MEDICARE, MEDICAID ==
[~2021-09-20] VITALS: Ht 154.9 cm; Wt 98.3 kg
[~2021-09-20 16:37] MED LIST changes: -LISI10TA15; +LISI10TA24
[2021-09-20 16:38] VITALS: BP 138/78
== END 2021-09-20 16:57 | disposition left against medical advice (07) ==
LOC: M ED 16:37
DX: Z53.21 Procedure and treatment not carried out due to patient leaving prior to being seen by health care provider (principal)

== ENCOUNTER → 2022-02-01 | Outpatient (CLI) | payer MEDICARE, MEDICAID | LOC: M WHC 07:39 | PROVIDERS: ATTEND Nurse Practitioner Women's Health | DX: Z15.01 Genetic susceptibility to malignant neoplasm of breast (principal); Z12.31 Encounter for screening mammogram for malignant neoplasm of breast; Z80.3 Family history of malignant neoplasm of breast; Z91.89 Other specified personal risk factors, not elsewhere classified ==

== ENCOUNTER 2022-02-16 12:51 | Emergency (ER) | payer MEDICARE, MEDICAID ==
[~2022-02-16] VITALS: Ht 154.9 cm; Wt 100.1 kg
[2022-02-16] MEDS ORDERED: IBUP200T46 PO (13:09)
[2022-02-16] MEDS ORDERED: BACITRACIN OINTMENT 30GM TUBE TOP STA (14:36)
[2022-02-16 15:24] VITALS: BP 140/84
== END 2022-02-16 15:38 | disposition home or self-care (01) ==
LOC: M ED 12:51
DX: S80.01XA Contusion of right knee, initial encounter (principal); W01.0XXA Fall on same level from slipping, tripping and stumbling without subsequent striking against object, initial encounter; I10 Essential (primary) hypertension; J45.909 Unspecified asthma, uncomplicated; Z79.811 Long term (current) use of aromatase inhibitors; Z79.899 Other long term (current) drug therapy; Z88.2 Allergy status to sulfonamides; Z88.1 Allergy status to other antibiotic agents; Z91.040 Latex allergy status; Y92.9 Unspecified place or not applicable; Y93.9 Activity, unspecified; Y99.9 Unspecified external cause status

== ENCOUNTER → 2022-03-09 | Outpatient (CLI) | payer MEDICARE, MEDICAID ==
[~2022-03-09] MED LIST changes: +IBUP200T46 PO
== END ==
LOC: M RAD 03-04 16:19
PROVIDERS: ATTEND Physician Assistant
DX: S80.01XA Contusion of right knee, initial encounter (principal); X58.XXXA Exposure to other specified factors, initial encounter; Y92.9 Unspecified place or not applicable

== ENCOUNTER → 2022-03-25 | Outpatient (CLI) | payer MEDICARE, MEDICAID ==
[2022-03-25 13:57] LABS: BASO % 0.6 % (0.0-1.0); EOS # 0.1 10^3/uL (0.0-0.5); EOS % 2.3 % (0.0-3.0); HEMATOCRIT 42.6 % (36.0-47.0); HEMOGLOBIN 13.7 g/dl (12.0-15.5); LYMPH # 0.8 10^3/uL (1.5-5.0); LYMPH % 23.4 % (24.0-44.0); MEAN CORPUSCULAR HEMOGLOBIN 27.3 pg (27.0-33.0); MEAN CORPUSCULAR HGB CONC 32.2 g/dl (32.0-36.5); MONO # 0.3 10^3/uL (0.0-0.8); MONO % 8.5 % (2.0-8.0); NEUTROPHILS # 2.2 10^3/uL (1.5-8.5); NEUTROPHILS % 64.9 % (36.0-66.0); PLATELET COUNT, AUTOMATED 237 10^3/uL (150-450); RED BLOOD COUNT 5.01 10^6/uL (4.00-5.40); WHITE BLOOD COUNT 3.4 10^3/uL (4.0-10.0)
[2022-03-25 14:36] LABS: ERYTHROCYTE SEDIMENTATION RATE 6 mm/hr (0-30)
== END ==
LOC: M PLALAB 11:38
PROVIDERS: ATTEND Physician Assistant
DX: S80.01XD Contusion of right knee, subsequent encounter (principal)

== ENCOUNTER → 2022-03-29 | Outpatient (REF) | payer MEDICARE, MEDICAID ==
[2022-03-29 20:28] LABS: SOURCE, BODY FLUID RT KNEE; SYNOVIAL FLUID COLOR BROWN (COLORLESS)
[2022-03-29 22:24] LABS: CRYSTALS, BODY FLUID URIC ACID (NONE SEEN); SOURCE, BODY FLUID CRYSTALS RT KNEE
[2022-03-29 23:11] LABS: SOURCE, BODY FLUID GLUCOSE RT KNEE
== END ==
LOC: M LAB REF 16:58
PROVIDERS: ATTEND Physician Assistant
DX: M25.461 Effusion, right knee (principal)

== ENCOUNTER → 2022-04-22 | Outpatient (CLI) | payer MEDICARE | LOC: M PLAIMG 12:22 | PROVIDERS: ATTEND Physician Assistant | DX: S93.401D Sprain of unspecified ligament of right ankle, subsequent encounter (principal) ==

== ENCOUNTER 2022-06-07 12:13 | Outpatient (RCR) | payer MEDICARE | END 2022-06-14 | LOC: M PT 12:13 | PROVIDERS: ATTEND Physician Assistant | DX: M25.461 Effusion, right knee (principal); M17.11 Unilateral primary osteoarthritis, right knee ==

== ENCOUNTER 2022-07-06 13:17 | Outpatient (RCR) | payer MEDICARE | END 2022-07-12 | LOC: M PT 13:17 | PROVIDERS: ATTEND Physician Assistant | DX: M25.461 Effusion, right knee (principal); M17.11 Unilateral primary osteoarthritis, right knee ==

== ENCOUNTER 2022-08-10 14:05 | Outpatient (RCR) | payer MEDICARE | END 2022-08-12 | LOC: M PT 14:05 | PROVIDERS: ATTEND Physician Assistant | DX: M25.461 Effusion, right knee (principal); M17.11 Unilateral primary osteoarthritis, right knee ==

== ENCOUNTER 2022-08-30 10:15 | Outpatient (RCR) | payer MEDICARE | END 2022-09-11 | LOC: M PT 10:15 | PROVIDERS: ATTEND Physician Assistant | DX: M25.461 Effusion, right knee (principal); M17.11 Unilateral primary osteoarthritis, right knee ==

== ENCOUNTER → 2022-09-06 | Outpatient (CLI) | payer MEDICARE, MEDICAID | LOC: M WHC 07:55 | PROVIDERS: ATTEND Nurse Practitioner Women's Health | DX: Z12.31 Encounter for screening mammogram for malignant neoplasm of breast (principal); N60.02 Solitary cyst of left breast; Z15.01 Genetic susceptibility to malignant neoplasm of breast; Z80.3 Family history of malignant neoplasm of breast; Z91.89 Other specified personal risk factors, not elsewhere classified ==

== ENCOUNTER → 2023-02-22 | Outpatient (CLI) | payer MEDICARE, MEDICAID | LOC: M WHC 08:29 | PROVIDERS: ATTEND Nurse Practitioner Women's Health | DX: Z12.31 Encounter for screening mammogram for malignant neoplasm of breast (principal); Z15.01 Genetic susceptibility to malignant neoplasm of breast; Z80.3 Family history of malignant neoplasm of breast; Z91.89 Other specified personal risk factors, not elsewhere classified ==

== ENCOUNTER → 2023-05-01 | Outpatient (REF) | payer MEDICARE, MEDICAID ==
[2023-05-01 14:31] LABS: BASO % 0.7 % (0.0-1.0); EOS # 0.1 10^3/uL (0.0-0.5); EOS % 1.9 % (0.0-3.0); HEMATOCRIT 44.2 % (36.0-47.0); LYMPH # 1.1 10^3/uL (1.5-5.0); MEAN CORPUSCULAR HEMOGLOBIN 28.3 pg (27.0-33.0); MEAN CORPUSCULAR HGB CONC 33.9 g/dl (32.0-36.5); MEAN CORPUSCULAR VOLUME 83.4 fl (80.0-96.0); MONO # 0.3 10^3/uL (0.0-0.8); MONO % 8.1 % (2.0-8.0); NEUTROPHILS # 2.7 10^3/uL (1.5-8.5); NEUTROPHILS % 63.1 % (36.0-66.0); PLATELET COUNT, AUTOMATED 267 10^3/uL (150-450); WHITE BLOOD COUNT 4.2 10^3/uL (4.0-10.0)
[2023-05-01 14:46] LABS: THYROID STIMULATING HORMONE 2.803 uIU/ML (0.55-4.78)
[2023-05-01 14:47] LABS: ALBUMIN 3.9 G/DL (3.2-5.2); ALKALINE PHOSPHATASE 93 U/L (46-116); ALT/SGPT 28 U/L (7.0-40); AST/SGOT 20 U/L (<34); BILIRUBIN,TOTAL 0.7 MG/DL (0.3-1.2); BLOOD UREA NITROGEN 13 MG/DL (9-23); CALCIUM LEVEL 9.6 MG/DL (8.3-10.6); CARBON DIOXIDE LEVEL 24 MMOL/L (20-31); CHLORIDE LEVEL 107 MMOL/L (98-107); CHOLESTEROL LEVEL 185 MG/DL (<200); CHOLESTEROL RISK RATIO 3.32 (<5); CREATININE FOR GFR 0.59 MG/DL (0.55-1.30); GLOMERULAR FILTRATION RATE > 60.0 (>45); GLUCOSE, FASTING 96 MG/DL (74-106); HDL CHOLESTEROL 55.7 MG/DL (>40); IRON (FE) 94 UG/DL (50-170); LDL CHOLESTEROL 92.9 MG/DL (<100); NON-HDL-C 129.3 MG/DL; POTASSIUM SERUM 4.4 MMOL/L (3.5-5.1); SODIUM LEVEL 142 MMOL/L (136-145); TOTAL PROTEIN 6.8 G/DL (5.7-8.2); TRIGLYCERIDES LEVEL 182 MG/DL (<150)
[2023-05-01 14:50] LABS: VITAMIN B12 LEVEL 528 PG/ML (211-911)
[2023-05-01 15:02] LABS: FOLATE 23.6 NG/ML (>5.4)
== END ==
LOC: M LAB REF 11:38
PROVIDERS: ATTEND Family Medicine Addiction Medicine
DX: D64.9 Anemia, unspecified (principal); I10 Essential (primary) hypertension

== ENCOUNTER → 2023-09-04 | Outpatient (CLI) | payer MEDICARE, MEDICAID | LOC: M WHC 09:41 | PROVIDERS: ATTEND Nurse Practitioner Women's Health | DX: N63.15 Unspecified lump in the right breast, overlapping quadrants (principal); Z15.01 Genetic susceptibility to malignant neoplasm of breast; Z80.3 Family history of malignant neoplasm of breast ==

== ENCOUNTER → 2024-01-26 | Outpatient (REF) | payer MEDICARE, MEDICAID | LOC: M SFHCDERM 16:08 | PROVIDERS: ATTEND Physician Assistant | DX: D22.39 Melanocytic nevi of other parts of face (principal) ==

== ENCOUNTER → 2024-02-21 | Outpatient (REF) | payer MEDICARE, MEDICAID | LOC: M SFHCDERM 17:42 | PROVIDERS: ATTEND Physician Assistant | DX: D23.9 Other benign neoplasm of skin, unspecified (principal) ==

== ENCOUNTER → 2024-04-08 | Outpatient (CLI) | payer MEDICARE, MEDICAID ==
[~2024-04-08] MED LIST changes: +ISOVUE-300 61% 100ML VIAL As Ordered ONE; +LIDOCAINE 1% MDV 20ML VIAL As Ordered ONE; +methylPREDNISolone SUSP 40MG/ML 1ML VIAL (DEPO MEDROL) As Ordered ONE
== END ==
LOC: M RAD 14:51
PROVIDERS: ATTEND Physician Assistant
DX: M16.12 Unilateral primary osteoarthritis, left hip (principal)
CPT/HCPCS: 20610; 77002; J1010; Q9967

== ENCOUNTER → 2024-04-24 | Outpatient (CLI) | payer MEDICARE, MEDICAID ==
[~2024-04-24] MED LIST changes: -ISOVUE-300 61% 100ML VIAL As Ordered ONE; -LIDOCAINE 1% MDV 20ML VIAL As Ordered ONE; -methylPREDNISolone SUSP 40MG/ML 1ML VIAL (DEPO MEDROL) As Ordered ONE
== END ==
LOC: M WHC 10:32
PROVIDERS: ATTEND Specialist
DX: N63.15 Unspecified lump in the right breast, overlapping quadrants (principal); R92.8 Other abnormal and inconclusive findings on diagnostic imaging of breast; Z85.3 Personal history of malignant neoplasm of breast; Z15.01 Genetic susceptibility to malignant neoplasm of breast
CPT/HCPCS: 76642; 77066; G0279

== ENCOUNTER → 2024-05-01 | Outpatient (CLI) | payer MEDICARE, MEDICAID ==
[2024-05-01 10:09] LABS: ALBUMIN 3.5 G/DL (3.2-5.2); ALKALINE PHOSPHATASE 89 U/L (35-104); ALT/SGPT 26 U/L (7.0-40); AST/SGOT 17 U/L (<34); BILIRUBIN,TOTAL 0.9 MG/DL (0.3-1.2); BLOOD UREA NITROGEN 17 MG/DL (9-23); CALCIUM LEVEL 9.2 MG/DL (8.3-10.6); CARBON DIOXIDE LEVEL 28 MMOL/L (20-31); CHLORIDE LEVEL 109 MMOL/L (98-107); CHOLESTEROL LEVEL 199 MG/DL (<200); CHOLESTEROL RISK RATIO 3.31 (<5); CREATININE FOR GFR 0.65 MG/DL (0.55-1.30); GLOMERULAR FILTRATION RATE > 60.0 (>45); GLUCOSE, FASTING 98 MG/DL (74-106); HDL CHOLESTEROL 60.1 MG/DL (>40); LDL CHOLESTEROL 116.3 MG/DL (<100); NON-HDL-C 138.9 MG/DL; SODIUM LEVEL 142 MMOL/L (136-145); TOTAL PROTEIN 6.6 G/DL (5.7-8.2); TRIGLYCERIDES LEVEL 113 MG/DL (<150)
[2024-05-01 10:13] LABS: THYROID STIMULATING HORMONE 2.009 uIU/ML (0.55-4.78)
== END ==
LOC: M LAB 07:59
PROVIDERS: ATTEND Family Medicine Addiction Medicine
DX: I10 Essential (primary) hypertension (principal)

== ENCOUNTER → 2024-12-31 | Outpatient (CLI) | payer MEDICARE, MEDICAID ==
[2024-12-31 15:13] LABS: PLATELET COUNT, AUTOMATED 266 10^3/uL (150-450)
[2024-12-31 15:42] LABS: CALCIUM LEVEL 9.5 MG/DL (8.3-10.6); CARBON DIOXIDE LEVEL 28 MMOL/L (20-31); CHLORIDE LEVEL 107 MMOL/L (98-107); CREATININE FOR GFR 0.65 MG/DL (0.55-1.30); GLOMERULAR FILTRATION RATE > 90.0 (>45); POTASSIUM SERUM 3.9 MMOL/L (3.5-5.1); SODIUM LEVEL 144 MMOL/L (136-145)
== END ==
LOC: M LAB 14:07
PROVIDERS: ATTEND Family Medicine Addiction Medicine
DX: R60.0 Localized edema (principal)

== ENCOUNTER 2025-01-08 12:08 | Outpatient (RCR) | payer MEDICARE, MEDICAID | END 2025-01-12 | LOC: M PT 12:08 | PROVIDERS: ATTEND Physician Assistant | DX: M54.16 Radiculopathy, lumbar region (principal) ==

== ENCOUNTER 2025-04-02 13:58 | Emergency (ER) | payer MEDICARE, MEDICAID ==
[2025-04-02 16:22] LABS: BASO # 0.0 10^3/uL (0.0-0.2); BASO % 0.3 % (0.0-1.0); EOS # 0.0 10^3/uL (0.0-0.5); EOS % 0.6 % (0.0-3.0); LYMPH # 1.0 10^3/uL (1.5-5.0); LYMPH % 14.9 % (24.0-44.0); MONO # 0.6 10^3/uL (0.0-0.8); MONO % 9.0 % (2.0-8.0); NEUTROPHILS # 4.9 10^3/uL (1.5-8.5); NEUTROPHILS % 74.9 % (36.0-66.0); PLATELET COUNT, AUTOMATED 243 10^3/uL (150-450)
[2025-04-02 16:27] LABS: APPEARANCE, URINE CLEAR (CLEAR); BACTERIA, URINE AUTO NEGATIVE (NEGATIVE); BILIRUBIN, URINE AUTO NEGATIVE (NEGATIVE); BLOOD, URINE BLOOD NEGATIVE (NEGATIVE); GLUCOSE, URINE (UA) AUTO NEGATIVE (NEGATIVE); KETONE, URINE AUTO TRACE mg/dL (NEGATIVE); LEUKOCYTE ESTERASE, URINE AUTO NEGATIVE (NEGATIVE); MUCUS, URINE SMALL (NEGATIVE); NITRITE, URINE AUTO NEGATIVE (NEGATIVE); PROTEIN, URINE AUTO NEGATIVE (NEGATIVE); RBC, URINE AUTO 2 /HPF (0-3); SPECIFIC GRAVITY URINE AUTO 1.006 (1.002-1.035); SQUAMOUS EPITHELIAL CELL UR AU 0 /HPF (0-6); UROBILINOGEN, URINE AUTO 0.2 mg/dL (0.0-2.0); WBC, URINE AUTO 2 /HPF (0-3)
[2025-04-02 16:55] LABS: ALT/SGPT 19 U/L (7.0-40); AST/SGOT 23 U/L (<34); CALCIUM LEVEL 9.1 MG/DL (8.3-10.6); CARBON DIOXIDE LEVEL 25 MMOL/L (20-31); CHLORIDE LEVEL 108 MMOL/L (98-107); CREATININE FOR GFR 0.61 MG/DL (0.55-1.30); GLOMERULAR FILTRATION RATE > 90.0 (>45); POTASSIUM SERUM 3.7 MMOL/L (3.5-5.1); SODIUM LEVEL 146 MMOL/L (136-145)
[2025-04-02] MEDS ORDERED: LISI10TA22 PO (17:27)
[2025-04-02] MEDS ORDERED: LASI20TA3 PO (17:27)
[2025-04-02 17:33] VITALS: BP 172/91; TEMP 98.3; O2SAT 99
== END 2025-04-02 17:37 | disposition home or self-care (01) ==
LOC: M ED 13:58 → EDBD 13:58 → M ED 17:37
DX: R60.0 Localized edema (principal); W01.198A Fall on same level from slipping, tripping and stumbling with subsequent striking against other object, initial encounter; M47.816 Spondylosis without myelopathy or radiculopathy, lumbar region; M46.96 Unspecified inflammatory spondylopathy, lumbar region; M51.34 Other intervertebral disc degeneration, thoracic region; J45.909 Unspecified asthma, uncomplicated; F32.A Depression, unspecified; F41.9 Anxiety disorder, unspecified; Z88.2 Allergy status to sulfonamides; Z88.1 Allergy status to other antibiotic agents; Z91.040 Latex allergy status; Z79.899 Other long term (current) drug therapy; R53.1 Weakness; Y99.9 Unspecified external cause status